=== PATIENT | female | born 1980 | race African-American/Black ===

== ENCOUNTER 2019-11-04 07:55 | Observation (INO) | payer BC ==
[2019-11-04 08:18] LABS: Glucose,Whole Blood 200 mg/dL (75-99)
[2019-11-04 08:31] LABS: Basophils % (A) 0 %; Eosinophils # (A) 0.4 k/uL (0-0.7); Eosinophils % (A) 3 %; HCT 38.8 % (34.0-46.0); HGB 13.5 gm/dL (11.4-16.0); Lymphocytes # (A) 2.6 k/uL (1.0-4.8); Lymphocytes % (A) 21 %; MCH 32.8 pg (25.0-35.0); MCHC 34.7 g/dL (31.0-37.0); MCV 94.6 fL (80.0-100.0); Mean Platelet Volume 8.3; Monocytes # (A) 0.6 k/uL (0-1.0); Monocytes % (A) 5 %; Neutrophils # (A) 8.8 k/uL (1.3-7.7); Neutrophils % (A) 70 %; Platelet Count 378 k/uL (150-450); RDW 15.5 % (11.5-15.5); WBC 12.5 k/uL (3.8-10.6)
--- NOTE | 2019-11-04 08:31 | ED ---
General Adult HPI - General Chief complaint: Neuro Symptoms/Deficit Stated complaint: Facial droop Time Seen by Provider: 11/04/19 08:15 Source: patient, family, RN notes reviewed Mode of arrival: ambulatory Limitations: no limitations - History of Present Illness Initial comments: Patient is a pleasant 39-year-old female presenting to the emergency Department with complaints of left facial weakness. Last known well was around midnight when she went to bed. Patient woke this morning and went to the bathroom and noticed left side of her face was weak. Patient states there is also mild paresthesia of the left face and left arm. Patient states symptoms have near resolved now that she is here in the emergency department. Patient may have some minimal tingling of her left arm still. Patient denies any arm or leg weakness. No confusion. No headache. No speech problems. No balance problems. No history of similar symptoms previously. Patient does not recall any problems with opening or shutting her eyelid. - Related Data Home Medications Medication Instructions Recorded Confirmed Mv-Mn/C/Glutamin/Lysin/Ctnk366 1 tab PO DAILY 11/04/19 11/04/19 [Airborne Gummies] Allergies Allergy/AdvReac Type Severity Reaction Status Date / Time No Known Allergies Allergy Verified 07/04/15 23:14 Review of Systems ROS Statement: Those systems with pertinent positive or pertinent negative responses have been documented in the HPI. ROS Other: All systems not noted in ROS Statement are negative. Constitutional: Denies: fever Eyes: Denies: eye pain ENT: Denies: ear pain Respiratory: Denies: cough Cardiovascular: Denies: chest pain Endocrine: Denies: fatigue Gastrointestinal: Denies: abdominal pain Genitourinary: Denies: dysuria Musculoskeletal: Denies: back pain Skin: Denies: rash Neurological: Reports: as per HPI, weakness, paresthesias. Denies: headache Past Medical History Past Medical History: Hypertension History of Any Multi-Drug Resistant Organisms: None Reported Past Surgical History: Section, Hysterectomy Past Psychological History: No Psychological Hx Reported Smoking Status: Current every day smoker Past Alcohol Use History: None Reported Past Drug Use History: Marijuana General Exam Limitations: no limitations General appearance: alert, in no apparent distress Head exam: Present: normocephalic Eye exam: Present: normal appearance, PERRL, EOMI. Absent: nystagmus ENT exam: Present: normal oropharynx Neck exam: Present: normal inspection Respiratory exam: Present: normal lung sounds bilaterally Cardiovascular Exam: Present: regular rate, normal rhythm GI/Abdominal exam: Present: soft. Absent: tenderness Extremities exam: Present: normal inspection Neurological exam: Present: alert, oriented X3, CN II-XII intact. Absent: motor sensory deficit Expanded Neurological exam: Present: protecting the airway Patient oriented to: Present: person, place, time Speech: Present: fluid speech Cranial nerves: EOM's Intact: Normal, Facial Palsy with Forehead Movement: Normal Sensory exam: Upper Extremity Light Touch: Normal, Lower Extremity Light Touch: Normal Motor strength exam: RUE: 5, LUE: 5, RLE: 5, LLE: 5 Eye Response: (4) open spontaneously Motor Response: (6) obeys commands Verbal Response: (5) oriented Psychiatric exam: Present: normal affect, normal mood Skin exam: Present: normal color Course Vital Signs 11/04/19 11/04/19 11/04/19 08:00 08:20 08:35 Temperature 98.4 F Pulse Rate 101 H 89 87 Respiratory 19 18 18 Rate Blood Pressure 194/130 192/131 196/112 O2 Sat by Pulse 100 98 95 Oximetry - Reevaluation(s) Reevaluation #1: 11/04/19 08:59 Case was again discussed with Dr. mendez who does want patient to have aspirin and Lipitor and Plavix. He does want patient admitted with neurology consult and MRI. He will follow up with patient. 11/04/19 09:01 Dr. mendez did review CT and CTA. - Consultations Consultation #1: Case was discussed in detail with Dr. Silva who recommends admission with aspirin and Lipitor. He agrees patient is not a TPA candidate. Patient is not a TPA candidate secondary to resolution of symptoms as well as last known well was a half hours ago. EKG Findings - EKG Comments: EKG Findings:: Normal sinus rhythm and 90. TX 190. QRS 100. QT 400. QTc 506. Left axis. LVH. Inverted T-wave in V6. Medical Decision Making - Lab Data Result diagrams: 11/04/19 08:15 11/04/19 08:15 Lab Results 11/04/19 11/04/19 11/04/19 Range/Units 08:15 08:15 08:15 WBC 12.5 H (3.8-10.6) k/uL RBC 4.10 (3.80-5.40) m/uL Hgb 13.5 (11.4-16.0) gm/dL Hct 38.8 (34.0-46.0) % MCV 94.6 (80.0-100.0) fL MCH 32.8 (25.0-35.0) pg MCHC 34.7 (31.0-37.0) g/dL RDW 15.5 (11.5-15.5) % Plt Count 378 (150-450) k/uL Neutrophils % 70 % Lymphocytes % 21 % Monocytes % 5 % Eosinophils % 3 % Basophils % 0 % Neutrophils # 8.8 H (1.3-7.7) k/uL Lymphocytes # 2.6 (1.0-4.8) k/uL Monocytes # 0.6 (0-1.0) k/uL Eosinophils # 0.4 (0-0.7) k/uL Basophils # 0.0 (0-0.2) k/uL PT 10.3 (9.0-12.0) sec INR 1.0 (<1.2) APTT 25.9 (22.0-30.0) sec Sodium 143 (137-145) mmol/L Potassium 2.6 L* (3.5-5.1) mmol/L Chloride 104 (98-107) mmol/L Carbon Dioxide 24 (22-30) mmol/L Anion Gap 15 mmol/L BUN 8 (7-17) mg/dL Creatinine 1.01 (0.52-1.04) mg/dL Est GFR (CKD-EPI)AfAm 81 (>60 ml/min/1.73 sqM) Est GFR (CKD-EPI)NonAf 70 (>60 ml/min/1.73 sqM) Glucose 192 H (74-99) mg/dL POC Glucose (mg/dL) (75-99) mg/dL POC Glu Paper Folding Machine Operator ID Calcium 8.0 L (8.4-10.2) mg/dL Total Bilirubin 0.8 (0.2-1.3) mg/dL AST 43 H (14-36) U/L ALT 20 (4-34) U/L Alkaline Phosphatase 63 (38-126) U/L Total Creatine Kinase (30-135) U/L Total Protein 8.0 (6.3-8.2) g/dL Albumin 4.8 (3.5-5.0) g/dL 11/04/19 11/04/19 Range/Units 08:15 08:17 WBC (3.8-10.6) k/uL RBC (3.80-5.40) m/uL Hgb (11.4-16.0) gm/dL Hct (34.0-46.0) % MCV (80.0-100.0) fL MCH (25.0-35.0) pg MCHC (31.0-37.0) g/dL RDW (11.5-15.5) % Plt Count (150-450) k/uL Neutrophils % % Lymphocytes % % Monocytes % % Eosinophils % % Basophils % % Neutrophils # (1.3-7.7) k/uL Lymphocytes # (1.0-4.8) k/uL Monocytes # (0-1.0) k/uL Eosinophils # (0-0.7) k/uL Basophils # (0-0.2) k/uL PT (9.0-12.0) sec INR (<1.2) APTT (22.0-30.0) sec Sodium (137-145) mmol/L Potassium (3.5-5.1) mmol/L Chloride (98-107) mmol/L Carbon Dioxide (22-30) mmol/L Anion Gap mmol/L BUN (7-17) mg/dL Creatinine (0.52-1.04) mg/dL Est GFR (CKD-EPI)AfAm (>60 ml/min/1.73 sqM) Est GFR (CKD-EPI)NonAf (>60 ml/min/1.73 sqM) Glucose (74-99) mg/dL POC Glucose (mg/dL) 200 H (75-99) mg/dL POC Glu Paper Folding Machine Operator ID Erna Gutierres Calcium (8.4-10.2) mg/dL Total Bilirubin (0.2-1.3) mg/dL AST (14-36) U/L ALT (4-34) U/L Alkaline Phosphatase (38-126) U/L Total Creatine Kinase 211 H (30-135) U/L Total Protein (6.3-8.2) g/dL Albumin (3.5-5.0) g/dL Disposition Clinical Impression: Transient cerebral ischemia, Hypertension, Hypokalemia Disposition: ADMITTED IP TO THIS HOSP Condition: Serious Is patient prescribed a controlled substance at d/c from ED?: No Referrals: None,Stated [Primary Care Provider] - 1-2 days Decision Time: 09:00
[2019-11-04 08:41] LABS: Partial Thromboplastin Time 25.9 sec (22.0-30.0); Prothrombin Time 10.3 sec (9.0-12.0)
[2019-11-04 08:42] LABS: Albumin 4.8 g/dL (3.5-5.0); Total Bilirubin 0.8 mg/dL (0.2-1.3)
--- NOTE | 2019-11-04 08:42 | CT ---
EXAMINATION TYPE: CT brain wo con for TPA DATE OF EXAM: 11/04/2019 COMPARISON: None HISTORY: 39-year-old female Left side weakness TECHNIQUE: Examination was done in axial plane without intravenous contrast. Coronal and sagittal r econstructions performed. CT DLP: 1043.8 mGycm Automated exposure control for dose reduction was used. FINDINGS: There is no evidence of acute intracranial hemorrhage, acute ischemic changes, mass, mass-effect, or extra-axial fluid collection. There is no effacement of cerebral sulci or basal subarachnoid cister ns. There is no hydrocephalus. There is no midline shift. Barbosa-white matter distinction is preserv ed. Incidental partially empty sella. Trace mucosal thickening ethmoid air cells. Mastoid air cells well pneumatized. The globes are intact . IMPRESSION: No acute intracranial abnormality seen.
[2019-11-04 08:45] LABS: Potassium 2.6 mmol/L (3.5-5.1)
[2019-11-04] MEDS ORDERED: POTASSIUM CHLORIDE ER 20 MEQ TAB.ER PO STA (08:57)
[2019-11-04] MEDS ORDERED: POTASSIUM CHLORIDE 2 MEQ/ML 20 ML VIAL IVPB STA (08:59)
[2019-11-04] MEDS ORDERED: ASPIRIN 325 MG TAB PO STA (09:02)
[2019-11-04] MEDS ORDERED: POTASSIUM CHLORIDE 20 MEQ in WATER FOR INJECTION 1 100ML.BAG IVPB STA (09:03)
[2019-11-04 09:05] LABS: Troponin I 0.02 ng/mL (0.000-0.034)
--- NOTE | 2019-11-04 09:18 | CT ---
EXAMINATION TYPE: CT angio head neck DATE OF EXAM: 11/04/2019 COMPARISON: CT brain same day HISTORY: 39-year-old female Left side weakness TECHNIQUE: Contiguous axial scanning of the head and neck performed with IV Contrast, patient injecte d with 65 mL of Isovue 370. Coronal/sagittal MIP reconstructions performed. 3-D reconstructions gener ated on a dedicated independent workstation. CT DLP: 506.8 mGycm Automated exposure control for dose reduction was used. FINDINGS: NECK: Conventional branching anatomy. The bilateral common and internal carotid arteries are patent. The bilateral vertebral arteries are patent though the right vertebral artery is dominant. Head: The vertebral, basilar, and internal carotid arteries are patent. Right vertebral artery again noted to be dominant. 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 Otherwise, the anterior and posterior circulations are patent. No aneurysmal change is seen. IMPRESSION: NECK: 1. DOMINANT RIGHT VERTEBRAL ARTERY. OTHERWISE, WIDELY PATENT CAROTID AND VERTEBRAL ARTERIES OF THE NE CK. HEAD: 1. CONGENITAL VARIATION WITH PERSISTENT ORIGIN RIGHT EMPLOYMENT CLERK. 2. OTHERWISE, NO LARGE VESSEL INTRACRANIAL ARTERIAL OCCLUSION, SIGNIFICANT STENOSIS, OR ANEURYSMAL CH CYDNEY SEEN.
[2019-11-04] MEDS: SODIUM CHLORIDE 0.9% 1,000 ML IV SCH (09:23)
[2019-11-04] MEDS ORDERED: ATORVASTATIN 80 MG TAB PO SCH (09:30)
[2019-11-04] MEDS ORDERED: CLOPIDOGREL 75 MG TAB PO SCH (09:30)
--- NOTE | 2019-11-04 10:00 | XR ---
EXAMINATION TYPE: XR chest 2V DATE OF EXAM: 11/04/2019 COMPARISON: NONE TECHNIQUE: PA and lateral views submitted. HISTORY: altered mental status FINDINGS: The lungs are clear and there is no pneumothorax, pleural effusion, or focal pneumonia. Mild cardio megaly. Biapical pleural thickening. Subsegmental changes left lung base. IMPRESSION: 1. Mild cardiomegaly and left basilar atelectasis favored over pneumonia correlate clinically..
--- NOTE | 2019-11-04 11:27 | P.HPIM ---
History of Present Illness 39-year-old pleasant female came in was department complains of weakness in the left side of the face with drooping towards the right side. Patient still has the weakness started today morning. Patient denied any nausea vomiting ab dominal pain patient had abdominal discomfort yesterday which she doesn't have today. Patient was having tingling numbness in the left side of the body patient did not have any appreciable weakness in the left side of the body. Patient does have history of essential hypertension doesn't take any medications at home. Does smoke does drink alcohol on daily basis but that she says it's only take 3-4 shots a day. Review of Systems REVIEW OF SYSTEMS: CONSTITUTIONAL: No fever, no malaise, no fatigue. HEENT: No recent visual problems or hearing problems. Denied any sore throat. CARDIOVASCULAR: No chest pain, orthopnea, PND, no palpitations, no syncope. PULMONARY: No shortness of breath, no cough, no hemoptysis. GASTROINTESTINAL: No diarrhea, no nausea, no vomiting, no abdominal pain. NEUROLOGICAL: As mentioned in HPI HEMATOLOGICAL: Denies any bleeding or petechiae. GENITOURINARY: Denies any burning micturition, frequency, or urgency. MUSCULOSKELETAL/RHEUMATOLOGICAL: Denies any joint pain, swelling, or any muscle pain. ENDOCRINE: Denies any polyuria or polydipsia. The rest of the 14-point review of systems is negative. Past Medical History Past Medical History: GERD/Reflux, GI Bleed, Hypertension Additional Past Medical History / Comment(s): Anal fissure, hemorrhoids, lower GI bleed History of Any Multi-Drug Resistant Organisms: None Reported Past Surgical History: Section, Hysterectomy, Tubal Ligation Additional Past Surgical History / Comment(s): colonoscopy Past Anesthesia/Blood Transfusion Reactions: No Reported Reaction, Motion Sickness Smoking Status: Current every day smoker - Past Family History Father History Unknown: Yes Additional Family Medical History / Comment(s): Pt does not know her father's medical hx. Mother Family Medical History: Diabetes Mellitus, Renal Disease Additional Family Medical History / Comment(s): Mother from renal failure Medications and Allergies Home Medications Medication Instructions Recorded Confirmed Type Mv-Mn/C/Glutamin/Lysin/[id number] 1 tab PO DAILY 11/04/19 11/04/19 History [Airborne Gummies] Allergies Allergy/AdvReac Type Severity Reaction Status Date / Time No Known Allergies Allergy Verified 11/04/19 10:35 Physical Exam Vitals: Vital Signs Temp Pulse Resp BP Pulse Ox 11/04/19 09:20 87 16 184/116 99 11/04/19 09:05 84 16 186/117 99 11/04/19 08:50 81 16 184/112 98 11/04/19 08:35 87 18 196/112 95 11/04/19 08:20 89 18 192/131 98 11/04/19 08:00 98.4 F 101 H 19 194/130 100 Intake and Output 11/03/19 11/04/19 11/04/19 22:59 06:59 14:59 Other: Weight 78.018 kg PHYSICAL EXAMINATION: GENERAL: The patient is alert and oriented x3, not in any acute distress. Well developed, well nourished. HEENT: Pupils are round and equally reacting to light. EOMI. No scleral icterus. No conjunctival pallor. Normocephalic, atraumatic. No pharyngeal erythema. No thyromegaly. CARDIOVASCULAR: S1 and S2 present. No murmurs, rubs, or gallops. PULMONARY: Chest is clear to auscultation, no wheezing or crackles. ABDOMEN: Soft, nontender, nondistended, normoactive bowel sounds. No palpable organomegaly. MUSCULOSKELETAL: No joint swelling or deformity. EXTREMITIES: No cyanosis, clubbing, or pedal edema. NEUROLOGICAL: Is still some facial weakness on the left side of the face now that weakness was appreciated sensory exam was not done by me as neurology is evaluating the patient. SKIN: No rashes. Results CBC & Chem 7: 11/04/19 08:15 11/04/19 08:15 Labs: Abnormal Lab Results - Last 24 Hours (Table) 11/04/19 11/04/19 11/04/19 Range/Units 08:15 08:15 08:15 WBC 12.5 H (3.8-10.6) k/uL Neutrophils # 8.8 H (1.3-7.7) k/uL Potassium 2.6 L* (3.5-5.1) mmol/L Glucose 192 H (74-99) mg/dL POC Glucose (mg/dL) (75-99) mg/dL Calcium 8.0 L (8.4-10.2) mg/dL AST 43 H (14-36) U/L Total Creatine Kinase 211 H (30-135) U/L 11/04/19 Range/Units 08:17 WBC (3.8-10.6) k/uL Neutrophils # (1.3-7.7) k/uL Potassium (3.5-5.1) mmol/L Glucose (74-99) mg/dL POC Glucose (mg/dL) 200 H (75-99) mg/dL Calcium (8.4-10.2) mg/dL AST (14-36) U/L Total Creatine Kinase (30-135) U/L Thrombosis Risk Factor Assmnt - Choose All That Apply Any of the Below Risk Factors Present?: Yes Each Factor Represents 1 point: Obesity (BMI >25) Other Risk Factors: No Other congenital or acquired thrombophilia - If yes, enter type in comment: No Thrombosis Risk Factor Assessment Total Risk Factor Score: 1 Thrombosis Risk Factor Assessment Level: Low Risk Assessment and Plan Plan: -Possible TIA or cerebrovascular accident on the right side most probably in right internal capsular the subcortical area. MRI was ordered will obtain lipid panel CT angios the head and neck did not show any significant occlusion echocardiogram will be obtained. Patient blood pressure is elevated but considering her TIA patient will not be started on antidepressant medications today. The patient is being discharged today patient will be referred to PCP to address the hypertension. Extensive nicotine cessation and alcohol cessation counseling was provided 10-essential hypertension: Marijuana and as mentioned above 10-nicotine abuse and alcohol abuse: Counseling was provided my suspicion is low that patient will have withdrawals but patient will be monitored here for any withdrawals -Hyperlipidemia probably because of hyponatremic azotemia from alcoholism magnesium will be on be obtained and potassium will be supplemented. -DVT prophylaxis early ambulation
[2019-11-04 11:30] LABS: Magnesium 1.2 mg/dL (1.6-2.3)
[2019-11-04] MEDS ORDERED: POTASSIUM CHLORIDE ER 20 MEQ TAB.ER PO ONE (11:30)
--- NOTE | 2019-11-04 11:48 | P.CNNES ---
History of Present Illness Consult date: 11/04/19 Requesting physician: Carlos Monge Reason for Consult: Stroke/TIA History of Present Illness: Patient is a 39-year-old female with history of hypertension, noncompliant with medication, as she has not taken the pressure medication for over a year. Patient states that she went to bed at midnight last night in usual state of health. This morning she woke up at 6:30 AM, and was fine. She went to the bathroom and felt her left side of the face was tight and she notices left side of the face was droopy. She noticed some tingling of left side of the body. There was no focal weakness, or problem with the vision, slurred speech or imbalance. Patient got concerned and decided to come to the ER. Her blood pressure initially recorded was 194/130. Patient underwent computed tomography scan of head, which was normal. 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 Otherwise no large vessel intracranial arterial occlusion, significant stenosis or aneurysm. CTA of the neck showed dominant right vertebral artery, otherwise widely patent carotid and vertebral arteries of the neck. Patient had EKG showed normal sinus rhythm. Chest x-ray showed mild cardiomegaly, left basilar atelectasis favored over pneumonia. Patient states that the tingling of left side of the body has completely resolved. She still feels slight tightness of the left side of the face but much improved. No other neurological symptoms. Patient was evaluated in the ER and the ED staff spoke to stroke neurologist Dr. Silva, who felt patient was not a candidate for TPA as patient's symptoms had mostly resolved in the ER. Patient has history of hypertension for 10 years, completely noncompliant with medication. Patient has not taken blood pressure medication for over a year. She does not take any antiplatelet medication. She takes only vitamins. Patient has smoked half pack per day for 20 years. Denies diabetes. Review of Systems As above in detail. Past Medical History Past Medical History: GERD/Reflux, GI Bleed, Hypertension Additional Past Medical History / Comment(s): Anal fissure, hemorrhoids, lower GI bleed History of Any Multi-Drug Resistant Organisms: None Reported Past Surgical History: Section, Hysterectomy, Tubal Ligation Additional Past Surgical History / Comment(s): colonoscopy Past Anesthesia/Blood Transfusion Reactions: No Reported Reaction, Motion Sickness Smoking Status: Current every day smoker - Past Family History Father History Unknown: Yes Additional Family Medical History / Comment(s): Pt does not know her father's medical hx. Mother Family Medical History: Diabetes Mellitus, Renal Disease Additional Family Medical History / Comment(s): Mother from renal failure Medications and Allergies Home Medications Medication Instructions Recorded Confirmed Type Mv-Mn/C/Glutamin/Lysin/[id number] 1 tab PO DAILY 11/04/19 11/04/19 History [Airborne Gummies] Allergies Allergy/AdvReac Type Severity Reaction Status Date / Time No Known Allergies Allergy Verified 11/04/19 10:35 Physical Examination - Vital Signs Vital Signs: Vital Signs Temp Pulse Resp BP Pulse Ox 11/04/19 09:20 87 16 184/116 99 11/04/19 09:05 84 16 186/117 99 11/04/19 08:50 81 16 184/112 98 11/04/19 08:35 87 18 196/112 95 11/04/19 08:20 89 18 192/131 98 11/04/19 08:00 98.4 F 101 H 19 194/130 100 Intake and Output 11/03/19 11/04/19 11/04/19 22:59 06:59 14:59 Other: Weight 78.018 kg On examination patient is a middle aged Afro-Portuguese female, in no acute distress. Patient is very pleasant. Patient is fully alert awake oriented to time place and person. Speech and language functions are normal. Attention and concentration fund of knowledge is adequate. On cranial nerve examination, pupils are round and reactive to light, visual arauz are full, extraocular muscles are intact. Face is symmetric and tongue protrudes the midline. Palatal elevation and sensation normal. On muscle strength testing there is no pronator drift and the strength is normal in arms and legs distally and proximally. Reflexes are symmetric and plantars downgoing. No ataxia for [id number] tone and bulk of muscles normal. There is no carotid bruit S1 and S2 audible. Results - Laboratory Findings CBC and BMP: 11/04/19 08:15 11/04/19 08:15 Abnormal Lab Findings: Abnormal Labs 11/04/19 11/04/19 11/04/19 08:15 08:15 08:15 WBC 12.5 H Neutrophils # 8.8 H Potassium 2.6 L* Glucose 192 H POC Glucose (mg/dL) Calcium 8.0 L AST 43 H Total Creatine Kinase 211 H 11/04/19 08:17 WBC Neutrophils # Potassium Glucose POC Glucose (mg/dL) 200 H Calcium AST Total Creatine Kinase Assessment and Plan Assessment: * Possible TIA versus transient focal neurological deficits due to uncontrolled hypertension. * Hypertension, uncontrolled * Tobacco user * Medication noncompliant Plan: * Patient to be started on aspirin 325 mg daily. * Patient's blood glucose is running in around 200 range. We will check hemog lobin A1c. * Blood patient used to be controlled. * MRI was recommended, but patient declined. Her NIH stroke scale is 0. Patient probably had TIA. * Agree with starting statins. * 2-D echo with bubble study to rule out PFO. * Recommended tobacco cessation.
[2019-11-04] MEDS: ATORVASTATIN 20 MG TAB PO SCH (13:09)
[2019-11-04] MEDS ORDERED: MELATONIN 5 MG TABLET PO SCH (21:00)
[2019-11-04] MEDS: POTASSIUM CHLORIDE ER 20 MEQ TAB.ER PO SCH (21:41)
[2019-11-04] MEDS: LABETALOL 100 MG TAB PO PRN (21:46)
[2019-11-04 21:55] LABS: Hemoglobin A1C 6.8 % (4.0-6.0)
[2019-11-05] MEDS: LABETALOL 100 MG TAB PO PRN (04:23)
[2019-11-05 06:24] LABS: African American GFR (CKD) >90 (>60 ml/min/1.73 sqM); Anion Gap 10 mmol/L; Blood Urea Nitrogen 5 mg/dL (7-17); Calcium 7.1 mg/dL (8.4-10.2); Carbon Dioxide 26 mmol/L (22-30); Chloride 104 mmol/L (98-107); Cholesterol 163 mg/dL (<200); Glucose 164 mg/dL (74-99); HDL Cholesterol 43 mg/dL (40-60); LDL Cholesterol,Calculated 76 mg/dL (0-99); Non-African American GFR(CKD) 90 (>60 ml/min/1.73 sqM); Potassium 2.9 mmol/L (3.5-5.1); Sodium 140 mmol/L (137-145); Triglycerides 222 mg/dL (<150)
[2019-11-05] MEDS: SODIUM CHLORIDE 0.9% 1,000 ML IV SCH ×2 (08:08→08:13)
[2019-11-05] MEDS: POTASSIUM CHLORIDE ER 20 MEQ TAB.ER PO SCH ×2 (08:18→09:13)
[2019-11-05] MEDS: ATORVASTATIN 20 MG TAB PO SCH (08:18)
[2019-11-05 08:50] VITALS: BP 190/106; PULSE 85; RESP 20; TEMP 98.3
[2019-11-05] MEDS ORDERED: ASPIRIN 325 MG TAB PO SCH (09:00)
[2019-11-05] MEDS ORDERED: MAGNESIUM SULFATE-D5W PMX 1 GM in DEXTROSE/WATER 1 100ML.BAG IVPB SCH (10:00)
[2019-11-05] MEDS ORDERED: POTASSIUM CHLORIDE 20 MEQ in WATER FOR INJECTION 1 100ML.BAG IVPB ONE (10:00)
--- NOTE | 2019-11-05 11:13 | P.PN ---
Subjective 39-year-old female admitted for TIA patient declined MRI. Patient is not happy with care as the all the things are not addressed yesterday all the things cannot be addressed as today. Patient wanted to leave. Patient is severely hypomagnesemic because of alcoholism. I counseled her that I'll replace magnesium and alert and discharge the patient after magnesium and potassium replacement on a diuretic therapy with a potassium pill and patient is a prediabetic patient will benefit from metformin same thing was discussed with the patient although patient doesn't seem to like any medications. Patient said she came in with 1 condition now she has 4 or 5 different conditions she believes these medical problems were created by hospital and hospital staff in spite of extensive counseling patient doesn't want any of these wanted to get a second opinion wanted to leave. I said I cannot officially discharge her until she gets this electrolytes replaced but patient is not willing to stay and I didn't even get a chance to review her aspirin and a statin even before I can do that patient left AMA. Objective - Vital Signs Vital signs: Vital Signs Temp 98.3 F 11/05/19 08:00 Pulse 85 11/05/19 08:00 Resp 20 11/05/19 08:00 BP 190/106 11/05/19 08:00 Pulse Ox 98 11/05/19 08:00 Intake & Output 11/04/19 11/05/19 11/05/19 18:59 06:59 18:59 Intake Total 360 180 Output Total 1 Balance 359 180 Weight 78.018 kg 71.9 kg Intake: Oral 360 180 Output: Urine 1 Other: Voiding Method Toilet # Voids 1 - Exam Did not examine as patient is not happy with hospital stay - Labs CBC & Chem 7: 11/04/19 08:15 11/05/19 05:47 Labs: Abnormal Lab Results - Last 24 Hours (Table) 11/04/19 11/04/19 11/05/19 Range/Units 08:15 08:15 05:47 Potassium 2.9 L (3.5-5.1) mmol/L BUN 5 L (7-17) mg/dL Glucose 164 H (74-99) mg/dL Hemoglobin A1c 6.8 H (4.0-6.0) % Calcium 7.1 L (8.4-10.2) mg/dL Magnesium 1.2 L (1.6-2.3) mg/dL Triglycerides 332 H 222 H (<150) mg/dL Assessment and Plan Plan: -Possible TIA or cerebrovascular accident on the right side most probably in right internal capsular the subcortical area. She declined MRI, she does have hyperlipidemia CT angios the head and neck did not show any significant occlusion echocardiogram was within normal limits -Hypomagnesemia -Hypokalemia -essential hypertension: Action plan is to send her and diuretic but patient ended up leaving AGAINST MEDICAL ADVICE 10-nicotine abuse and alcohol abuse: Doesn't have any alcohol withdrawals -Hyperlipidemia -Pre-diabetes
--- NOTE | 2019-11-05 11:14 | P.DS ---
Providers Date of admission: 11/04/19 09:02 Attending physician: Carlos Monge MD Consults: 11/04/19 09:02 Consult Physician Urgent Consulting Provider: Keesha Hernandez Consult Reason/Comments: tia Do you want consulting provider notified?: Yes Primary care physician: Stated None Hospital Course: Patient left AGAINST MEDICAL ADVICE Patient Condition at Discharge: Serious Plan - Discharge Summary Discharge Rx Participant: No New Discharge Prescriptions: No Action Mv-Mn/C/Glutamin/Lysin/[id number] [Airborne Gummies] 1 tab PO DAILY Discharge Medication List Mv-Mn/C/Glutamin/Lysin/[id number] [Airborne Gummies] 1 tab PO DAILY 11/04/19 [History] Follow up Appointment(s)/Referral(s): None,Stated [Primary Care Provider] - 1-2 days (Please contact your insurance company about finding a primary physician in your coverage plan.) Patient Instructions/Handouts: Transient Ischemic Attack (DC), How to Stop Smoking (DC), At-Risk Alcohol Use (DC), Hypertension (DC) Activity/Diet/Wound Care/Special Instructions: CVA/TIA 1. Call your physician with any worsening symptoms of stroke such as, increased weakness, new numbness or tingling, mental status changes, visual changes or new loss of sensation. 2. Stroke prevention methods include lowering cholesterol, thinning your blood, preventing high blood pressure, keeping tight control of your diabetes, increasing exercise/activity, smoking cessation and alcohol cessation. Discharge Disposition: Left Against Medical Advice
[2019-11-05] MEDS ORDERED: POTASSIUM CHLORIDE ER 20 MEQ TAB.ER PO ONE (12:00)
--- NOTE | 2019-11-05 19:08 | ECHOF ---
Referral Reason:Thrombus MEASUREMENTS -------- HEIGHT: 162.6 cm WEIGHT: 78.0 kg BP: 184/116 IVSd: 1.3 cm (0.6 - 1.1) LVIDd: 4.9 cm (3.9 - 5.3) LVPWd: 1.7 cm (0.6 - 1.1) IVSs: 1.3 cm LVIDs: 4.1 cm LVPWs: 1.8 cm LA Diam: 4.5 cm (2.7 - 3.8) LAESV Index (A-L): 49.09 ml/m Ao Diam: 2.4 cm (2.0 - 3.7) AV Cusp: 1.4 cm (1.5 - 2.6) LA Diam: 3.9 cm (2.7 - 3.8) MV EXCURSION: 19.740 mm (> 18.000) MV EF SLOPE: 75 mm/s (70 - 150) EPSS: 1.4 cm MV E Trino: 1.01 m/s MV DecT: 72 ms MV A Trino: 0.73 m/s MV E/A Ratio: 1.38 RAP: 5.00 mmHg RVSP: 15.84 mmHg FINDINGS -------- Sinus rhythm. This was a technically good study. The left ventricular size is normal. There is severe concentric left ventricular hypertrophy. The re is mild global hypokinesis of LV . Overall left ventricular systolic function is mildly impaired with, an EF between 45 - 50 %. The right ventricle is normal in size. LA is severely dilated >40 ml/m2 The right atrial size is normal. There is mild aortic valve sclerosis. There is mild aortic regurgitation. The mitral valve is normal. Mild mitral regurgitation is present. Mild tricuspid regurgitation present. Right ventricular systolic pressure is normal at < 35 mmHg. There is no evidence of pulmonary hypertension. There is no pulmonic regurgitation present. The aortic root size is normal. There is no pericardial effusion. CONCLUSIONS -------- 1. Sinus rhythm. 2. This was a technically good study. 3. The left ventricular size is normal. 4. There is severe concentric left ventricular hypertrophy. 5. There is mild global hypokinesis of LV . 6. Overall left ventricular systolic function is mildly impaired with, an EF between 45 - 50 %. 7. LA is severely dilated >40 ml/m2 8. There is mild aortic valve sclerosis. 9. There is mild aortic regurgitation. 10. Mild mitral regurgitation is present. 11. Mild tricuspid regurgitation present. 12. Right ventricular systolic pressure is normal at < 35 mmHg. 13. There is no pulmonic regurgitation present. 14. The aortic root size is normal. 15. There is no pericardial effusion. TOLL COLLECTOR: Sis Stiles RDCS
== END 2019-11-05 09:30 | disposition left against medical advice (07) ==
LOC: EC 07:55 → 3SCARD 09:02
PROVIDERS: ADMIT Internal Medicine; ATTEND Internal Medicine
DX: G45.9 Transient cerebral ischemic attack, unspecified (principal); E78.5 Hyperlipidemia, unspecified; E83.42 Hypomagnesemia; E87.1 Hypo-osmolality and hyponatremia; E87.6 Hypokalemia; F10.20 Alcohol dependence, uncomplicated; F17.200 Nicotine dependence, unspecified, uncomplicated; I10 Essential (primary) hypertension; J98.11 Atelectasis; R29.810 Facial weakness; R73.03 Prediabetes; Z83.3 Family history of diabetes mellitus; Z90.710 Acquired absence of both cervix and uterus; Z91.14 Patient's other noncompliance with medication regimen; Z98.51 Tubal ligation status
CPT/HCPCS: 96366; 96365; 99285; 36415; 93005; 93306; 97161; 80061 ×2; 80053; 80048; 82550; 82553; 83735; 84484; 85025; 85610; 85730; 83036; 71046; 70496; 70450; 70498; G0378 ×2; J3480; Q9967

== ENCOUNTER 2021-06-11 15:48 | Emergency (ER) | payer BC, OTHER ==
[2021-06-11 16:08] VITALS: RESP 18; TEMP 98.2
[2021-06-11] MEDS ORDERED: oxyCODONE-APAP 10-325MG 1 EACH TAB PO STA (16:27)
--- NOTE | 2021-06-11 16:28 | ED ---
General Adult HPI - General Chief complaint: Extremity Injury, Lower Stated complaint: IHS-foot injury Time Seen by Provider: 06/11/21 16:13 Source: patient Mode of arrival: ambulatory Limitations: no limitations - History of Present Illness Initial comments: Dictation was produced using [employer] dictation software. please excuse any grammatical, word or spelling errors. Chief Complaint: 41-year-old female presents with right foot pain History of Present Illness: 41-year-old female she presents with right foot pain. She accidentally kicked a metal cart at work yesterday. She has midfoot tenderness. Patient states she had injured that foot in the past. She started with family with a limp. The ROS documented in this emergency department record has been reviewed and confirmed by me. Those systems with pertinent positive or negative responses have been documented in the HPI. All other systems are other negative and/or no ncontributory. PHYSICAL EXAM: General Impression: Alert and oriented x3, not in acute distress Right ankle: Tenderness to the midfoot with palpation, no discoloration, normal dorsalis pedis pulse and PT pulse Psych: Normal affect and mood ED course: 41 Year old female presents with right foot pain after axilla kicking cart yesterday. Vital Signs upon arrival are within acceptable limits. Foot x-ray is unremarkable. Despite having some mid foot pain mechanism injury makes Lisfranc injury unlikely, furthermore symptoms are only the dorsum of her foot. Patient given by mouth analgesia. Patient given prescription for analgesia. Patient will be discharged. - Related Data Home Medications Medication Instructions Recorded Confirmed Mv-Mn/C/Glutamin/Lysin/[id number] 1 tab PO DAILY 11/04/19 11/04/19 [Airborne Gummies] Previous Rx's Medication Instructions Recorded HYDROcodone/APAP 5-325MG [Eva 1 tab PO Q6HR PRN 3 Days #12 tab 06/11/21 5-325] Allergies Allergy/AdvReac Type Severity Reaction Status Date / Time No Known Allergies Allergy Verified 06/11/21 16:06 Review of Systems ROS Statement: Those systems with pertinent positive or pertinent negative responses have been documented in the HPI. ROS Other: All systems not noted in ROS Statement are negative. Past Medical History Past Medical History: GERD/Reflux, GI Bleed, Hypertension Additional Past Medical History / Comment(s): Anal fissure, hemorrhoids, lower GI bleed History of Any Multi-Drug Resistant Organisms: None Reported Past Surgical History: Section, Hysterectomy, Tubal Ligation Additional Past Surgical History / Comment(s): colonoscopy Past Anesthesia/Blood Transfusion Reactions: No Reported Reaction, Motion Sickness Past Psychological History: Anxiety, Depression Smoking Status: Current every day smoker Past Alcohol Use History: None Reported, Heavy Past Drug Use History: Marijuana - Past Family History Father History Unknown: Yes Additional Family Medical History / Comment(s): Pt does not know her father's medical hx. Mother Family Medical History: Diabetes Mellitus, Renal Disease Additional Family Medical History / Comment(s): Mother from renal failure General Exam Limitations: no limitations Course Vital Signs 06/11/21 16:06 Temperature 98.2 F Pulse Rate 94 Respiratory 18 Rate Blood Pressure 186/102 O2 Sat by Pulse 100 Oximetry Disposition Clinical Impression: Foot pain Disposition: HOME SELF-CARE Condition: Good Instructions (If sedation given, give patient instructions): Foot Contusion (ED) Prescriptions: HYDROcodone/APAP 5-325MG [Eva 5-325] 1 tab PO Q6HR PRN 3 Days #12 tab PRN Reason: Severe Pain Is patient prescribed a controlled substance at d/c from ED?: Yes If prescribed controlled substance>3 days was MAPS reviewed?: Prescribed <3 Days Referrals: None,Stated [Primary Care Provider] - 1-2 days
--- NOTE | 2021-06-11 17:13 | XR ---
EXAMINATION TYPE: XR foot complete RT DATE OF EXAM: 06/11/2021 COMPARISON: NONE HISTORY: Pain TECHNIQUE: 3 views FINDINGS: Metatarsals are intact. I see no fracture nor dislocation. There are no erosions. Joint spa mike are fairly normal. There is mild plantar and Achilles calcaneal spurring. IMPRESSION: Calcaneal spurring. No fracture.
[2021-06-11 17:56] VITALS: BP 154/98; PULSE 65
== END 2021-06-11 17:56 | disposition home or self-care (01) ==
LOC: EC 15:48
DX: M79.671 Pain in right foot (principal); I10 Essential (primary) hypertension; F17.200 Nicotine dependence, unspecified, uncomplicated; F12.90 Cannabis use, unspecified, uncomplicated; Z83.3 Family history of diabetes mellitus; Z87.19 Personal history of other diseases of the digestive system; W22.8XXA Striking against or struck by other objects, initial encounter
CPT/HCPCS: 99283

== ENCOUNTER 2021-06-21 08:06 | Emergency (ER) | payer BC, OTHER ==
[2021-06-21 08:11] VITALS: BP 169/105; PULSE 84; RESP 18; TEMP 97.8
[2021-06-21] MEDS ORDERED: KETOROLAC 15 MG/ML 1 ML VIAL IM STA (08:17)
--- NOTE | 2021-06-21 08:26 | ED ---
Lower Extremity Injury HPI - General Chief Complaint: Extremity Injury, Lower Stated Complaint: Foot pain Time Seen by Provider: 06/21/21 08:11 Source: patient Mode of arrival: wheelchair Limitations: no limitations - History of Present Illness Initial Comments: 41 year-old male patient presents to the emergency department for evaluation of right foot pain and swelling. Patient states that two weeks ago she injured the foot at work. States she hit it on cart. States that her foot has been swelling and this morning she was unable to bear weight due to the pain. She denies any numbness or tingling. Denies ankle pain. Patient denies any headache, neck pain, back pain, chest pain, shortness of breath, dizziness, weakness, abdominal pain, nausea, vomiting, or difficulties with bowel movements or urination. - Related Data Home Medications Medication Instructions Recorded Confirmed Mv-Mn/C/Glutamin/Lysin/[id number] 1 tab PO DAILY 11/04/19 06/21/21 [Airborne Gummies] Allergies Allergy/AdvReac Type Severity Reaction Status Date / Time No Known Allergies Allergy Verified 06/21/21 08:55 Review of Systems ROS Statement: Those systems with pertinent positive or pertinent negative responses have been documented in the HPI. ROS Other: All systems not noted in ROS Statement are negative. Past Medical History Past Medical History: GERD/Reflux, GI Bleed, Hypertension Additional Past Medical History / Comment(s): Anal fissure, hemorrhoids, lower GI bleed History of Any Multi-Drug Resistant Organisms: None Reported Past Surgical History: Section, Hysterectomy, Tubal Ligation Additional Past Surgical History / Comment(s): colonoscopy Past Anesthesia/Blood Transfusion Reactions: No Reported Reaction, Motion Sickness Past Psychological History: Anxiety, Depression Smoking Status: Current every day smoker Past Alcohol Use History: Daily Past Drug Use History: Marijuana - Past Family History Father History Unknown: Yes Additional Family Medical History / Comment(s): Pt does not know her father's medical hx. Mother Family Medical History: Diabetes Mellitus, Renal Disease Additional Family Medical History / Comment(s): Mother from renal failure General Exam Limitations: no limitations General appearance: alert, in no apparent distress, other (This is a well developed, well nourished adult female patient in no acute distress. V/S upon presentation are temperature 97.8, pulse 84, resp 18, BP 169/105, Pulse ox 100%. ) ENT exam: Present: normal exam, normal oropharynx, mucous membranes moist Respiratory exam: Present: normal lung sounds bilaterally. Absent: respiratory distress, wheezes, rales, rhonchi, stridor Cardiovascular Exam: Present: regular rate, normal rhythm, normal heart sounds. Absent: systolic murmur, diastolic murmur, rubs, gallop, clicks Extremities exam: Present: full ROM, tenderness (right dorsal foot), normal capillary refill, other (No soft tissue swelling. Skin is warm and dry. Cap refill less than 2 seconds. Pedal pulses 2+.). Absent: pedal edema, joint swelling, calf tenderness Neurological exam: Present: alert, oriented X3, CN II-XII intact Psychiatric exam: Present: normal affect, normal mood Skin exam: Present: warm, dry, intact, normal color. Absent: rash Course Vital Signs 06/21/21 08:08 Temperature 97.8 F Pulse Rate 84 Respiratory 18 Rate Blood Pressure 169/105 O2 Sat by Pulse 100 Oximetry Medical Decision Making - Medical Decision Making 41-year-old female patient presents to the emergency department today for evaluation of persistent right foot pain and swelling after injury 2 weeks ago. Physical examination is unremarkable. No swelling at this time. Pulses are intact. Neurovascular status intact. X-ray was negative. She'll be discharged to follow-up with orthopedics for further evaluation. Return parameters were discussed in detail. She verbalizes understanding and agrees this plan. Case discussed with my attending Dr. Lopez. - Radiology Data Radiology results: report reviewed, image reviewed 3 views of the right foot are obtained. Report reviewed in its entirety. Impression by Dr. Caicedo shows hallux valgus with bunion. No acute or healing fracture seen. Disposition Clinical Impression: Right foot pain Disposition: HOME SELF-CARE Condition: Good Instructions (If sedation given, give patient instructions): Metatarsalgia (DC) Additional Instructions: Follow up with orthopedics as soon as possible. Rest, ice, elevate the foot. Return to the emergency department for any new, worsening, or concerning symptoms. Is patient prescribed a controlled substance at d/c from ED?: No Referrals: Amol Rider MD [STAFF PHYSICIAN] - 1-2 days Time of Disposition: 08:40
--- NOTE | 2021-06-21 08:36 | XR ---
EXAMINATION TYPE: XR foot complete RT DATE OF EXAM: 06/21/2021 COMPARISON: NONE HISTORY: 41-year-old female injury 2 weeks ago, pain over the right metatarsals TECHNIQUE: 3 views FINDINGS: Mild hallux valgus with bunion. No acute fracture, subluxation, dislocation seen. Mild degenerative s purring at the medial malleolus. IMPRESSION: Hallux valgus with bunion. No acute or healing fractures seen. If symptoms persist, CT or MRI can be considered.
== END 2021-06-21 09:03 | disposition home or self-care (01) ==
LOC: EC 08:06
DX: M79.671 Pain in right foot (principal); I10 Essential (primary) hypertension; K21.9 Gastro-esophageal reflux disease without esophagitis; F17.200 Nicotine dependence, unspecified, uncomplicated; F12.90 Cannabis use, unspecified, uncomplicated; Z87.19 Personal history of other diseases of the digestive system; Z83.3 Family history of diabetes mellitus
CPT/HCPCS: 73630; 96372; 99283; J1885

== ENCOUNTER 2021-07-30 08:41 | Observation (INO) | payer BC ==
[2021-07-30] MEDS ORDERED: NITROGLYCERIN OINT 1 INCH/GM PACKET TOPICAL STA (09:19)
[2021-07-30] MEDS ORDERED: ASPIRIN 81 MG PO STA (09:19)
[2021-07-30] MEDS ORDERED: NITROGLYCERIN SL TABS 0.4 MG TAB SUBLINGUAL STA (09:19)
--- NOTE | 2021-07-30 09:21 | ED ---
General Adult HPI - General Chief complaint: Chest Pain Stated complaint: Dizziness,heart fluttering Time Seen by Provider: 07/30/21 09:00 Source: patient, RN notes reviewed, old records reviewed Mode of arrival: ambulatory Limitations: no limitations - History of Present Illness Initial comments: Is a 41-year-old female who presents emergency Department stating she is having chest pain and some shortness of breath. Patient states last Friday she was having chest pain went to [facility] they told her she was having heart attack she stayed overnight but signed out AMA the next day. Patient states the pain is been intermittent since then that this morning it was a little worse and she did vomit up her blood pressure meds so she decided come to the emergency department. Patient denies any fever chills or cough. Patient denies any diaphoretic episodes. Patient states the pain does not radiate anywhere feels like it's right in the front upper chest. Patient denies any abdominal pain patient denies any back pain. Patient denies any swelling in her legs or calf tenderness. Patient states she does have high blood pressure and is a smoker. - Related Data Home Medications Medication Instructions Recorded Confirmed Aspirin EC [Ecotrin Low Dose] 81 mg PO DAILY 07/30/21 07/30/21 Losartan Potassium 100 mg PO DAILY 07/30/21 07/30/21 hydroCHLOROthiazide [Hydrodiuril] 12.5 mg PO DAILY 07/30/21 07/30/21 Allergies Allergy/AdvReac Type Severity Reaction Status Date / Time No Known Allergies Allergy Verified 07/30/21 10:30 Review of Systems ROS Statement: Those systems with pertinent positive or pertinent negative responses have been documented in the HPI. ROS Other: All systems not noted in ROS Statement are negative. Past Medical History Past Medical History: GERD/Reflux, GI Bleed, Hypertension, Myocardial Infarction (non Q-wave) Additional Past Medical History / Comment(s): Anal fissure, hemorrhoids, lower GI bleed, alcoholism History of Any Multi-Drug Resistant Organisms: None Reported Past Surgical History: Section, Hysterectomy, Tubal Ligation Additional Past Surgical History / Comment(s): colonoscopy Past Anesthesia/Blood Transfusion Reactions: No Reported Reaction, Motion Sickness Past Psychological History: Anxiety, Depression Smoking Status: Current every day smoker Past Alcohol Use History: None Reported Past Drug Use History: Marijuana - Past Family History Father History Unknown: Yes Additional Family Medical History / Comment(s): Pt does not know her father's medical hx. Mother Family Medical History: Diabetes Mellitus, Renal Disease Additional Family Medical History / Comment(s): Mother from renal failure General Exam - General Exam Comments Initial Comments: GENERAL: Patient is well-developed and well-nourished. Patient is nontoxic and well- hydrated and is in mild distress. ENT: Neck is soft and supple. No significant lymphadenopathy is noted. Oropharynx is clear. Moist mucous membranes. Neck has full range of motion without eliciting any pain. EYES: The sclera were anicteric and conjunctiva were pink and moist. Extraocular movements were intact and pupils were equal round and reactive to light. Eyelids were unremarkable. PULMONARY: Unlabored respirations. Good breath sounds bilaterally. No audible rales rhonchi or wheezing was noted. CARDIOVASCULAR: There is a regular rate and rhythm without any murmurs gallops or rubs. ABDOMEN: Soft and nontender with normal bowel sounds. SKIN: Skin is clear with no lesions or rashes and otherwise unremarkable. NEUROLOGIC: Patient is alert and oriented x3. Cranial nerves II through XII are grossly intact. Motor and sensory are also intact. Normal speech, volume and content. Symmetrical smile. MUSCULOSKELETAL: Normal extremities with adequate strength and full range of motion. LYMPHATICS: No significant lymphadenopathy is noted PSYCHIATRIC: Normal psychiatric evaluation. Limitations: no limitations Course Vital Signs 07/30/21 07/30/21 07/30/21 09:10 09:39 10:31 Temperature 98.1 F Pulse Rate 96 90 83 Respiratory 18 18 17 Rate Blood Pressure 134/88 134/75 123/91 O2 Sat by Pulse 100 97 Oximetry Medical Decision Making - Medical Decision Making EKG shows sinus rhythm with occasional PAC at 85 bpm VT interval 258 QRS is 98 Q T interval 390 QTC is [address] segment elevation however there is inverted T waves in 1 and aVL as well as V1 and V2. Chest x-ray shows no acute abnormality. I started the patient heparin because she stated she had a non-STEMI at the other hospital with an elevated troponin. Patient continued to have some chest pain in the emergency department. I spoke with some physicians Dr. Parsons she agreed to admit the patient admitted the patient I wrote admitting orders I consulted cardiology continue the aspirin heparin Nitropaste on the floor. - Lab Data Result diagrams: 07/30/21 09:20 07/30/21 09:20 Lab Results 07/30/21 07/30/21 07/30/21 Range/Units 09:20 09:20 09:20 WBC 14.0 H (3.8-10.6) k/uL RBC 4.52 (3.80-5.40) m/uL Hgb 14.3 (11.4-16.0) gm/dL Hct 43.2 (34.0-46.0) % MCV 95.6 (80.0-100.0) fL MCH 31.6 (25.0-35.0) pg MCHC 33.1 (31.0-37.0) g/dL RDW 14.7 (11.5-15.5) % Plt Count 369 (150-450) k/uL MPV 8.0 Neutrophils % 75 % Lymphocytes % 15 % Monocytes % 6 % Eosinophils % 3 % Basophils % 0 % Neutrophils # 10.4 H (1.3-7.7) k/uL Lymphocytes # 2.1 (1.0-4.8) k/uL Monocytes # 0.9 (0-1.0) k/uL Eosinophils # 0.4 (0-0.7) k/uL Basophils # 0.0 (0-0.2) k/uL PT 10.2 (9.0-12.0) sec INR 0.9 (<1.2) APTT 24.3 (22.0-30.0) sec Sodium 138 (137-145) mmol/L Potassium 3.4 L (3.5-5.1) mmol/L Chloride 99 (98-107) mmol/L Carbon Dioxide 29 (22-30) mmol/L Anion Gap 10 mmol/L BUN 10 (7-17) mg/dL Creatinine 1.43 H (0.52-1.04) mg/dL Est GFR (CKD-EPI)AfAm 52 (>60 ml/min/1.73 sqM) Est GFR (CKD-EPI)NonAf 45 (>60 ml/min/1.73 sqM) Glucose 176 H (74-99) mg/dL Calcium 9.8 (8.4-10.2) mg/dL Magnesium 1.8 (1.6-2.3) mg/dL Total Bilirubin 0.9 (0.2-1.3) mg/dL AST 33 (14-36) U/L ALT 16 (4-34) U/L Alkaline Phosphatase 66 (38-126) U/L Troponin I (0.000-0.034) ng/mL Total Protein 7.9 (6.3-8.2) g/dL Albumin 4.7 (3.5-5.0) g/dL 07/30/ Range/Units 09:20 WBC (3.8-10.6) k/uL RBC (3.80-5.40) m/uL Hgb (11.4-16.0) gm/dL Hct (34.0-46.0) % MCV (80.0-100.0) fL MCH (25.0-35.0) pg MCHC (31.0-37.0) g/dL RDW (11.5-15.5) % Plt Count (150-450) k/uL MPV Neutrophils % % Lymphocytes % % Monocytes % % Eosinophils % % Basophils % % Neutrophils # (1.3-7.7) k/uL Lymphocytes # (1.0-4.8) k/uL Monocytes # (0-1.0) k/uL Eosinophils # (0-0.7) k/uL Basophils # (0-0.2) k/uL PT (9.0-12.0) sec INR (<1.2) APTT (22.0-30.0) sec Sodium (137-145) mmol/L Potassium (3.5-5.1) mmol/L Chloride (98-107) mmol/L Carbon Dioxide (22-30) mmol/L Anion Gap mmol/L BUN (7-17) mg/dL Creatinine (0.52-1.04) mg/dL Est GFR (CKD-EPI)AfAm (>60 ml/min/1.73 sqM) Est GFR (CKD-EPI)NonAf (>60 ml/min/1.73 sqM) Glucose (74-99) mg/dL Calcium (8.4-10.2) mg/dL Magnesium (1.6-2.3) mg/dL Total Bilirubin (0.2-1.3) mg/dL AST (14-36) U/L ALT (4-34) U/L Alkaline Phosphatase (38-126) U/L Troponin I 0.020 (0.000-0.034) ng/mL Total Protein (6.3-8.2) g/dL Albumin (3.5-5.0) g/dL Critical Care Time Critical Care Time: Yes Total Critical Care Time: 35 Disposition Clinical Impression: Unstable angina pectoris, Renal insufficiency, Hypokalemia Disposition: ADMITTED IP TO THIS HOSP Referrals: None,Stated [Primary Care Provider] - 1-2 days Time of Disposition: 10:46
[2021-07-30 09:39] LABS: Basophils % (A) 0 %; Eosinophils # (A) 0.4 k/uL (0-0.7); Eosinophils % (A) 3 %; HCT 43.2 % (34.0-46.0); HGB 14.3 gm/dL (11.4-16.0); Lymphocytes # (A) 2.1 k/uL (1.0-4.8); Lymphocytes % (A) 15 %; MCH 31.6 pg (25.0-35.0); MCHC 33.1 g/dL (31.0-37.0); MCV 95.6 fL (80.0-100.0); Monocytes # (A) 0.9 k/uL (0-1.0); Monocytes % (A) 6 %; Neutrophils # (A) 10.4 k/uL (1.3-7.7); Neutrophils % (A) 75 %; Platelet Count 369 k/uL (150-450); RBC 4.52 m/uL (3.80-5.40); RDW 14.7 % (11.5-15.5)
[2021-07-30 09:49] LABS: Albumin 4.7 g/dL (3.5-5.0); Calcium 9.8 mg/dL (8.4-10.2); Magnesium 1.8 mg/dL (1.6-2.3); Potassium 3.4 mmol/L (3.5-5.1); Total Bilirubin 0.9 mg/dL (0.2-1.3); Total Protein 7.9 g/dL (6.3-8.2)
[2021-07-30 09:51] LABS: INR 0.9 (<1.2); Partial Thromboplastin Time 24.3 sec (22.0-30.0); Prothrombin Time 10.2 sec (9.0-12.0)
--- NOTE | 2021-07-30 10:17 | XR ---
EXAMINATION TYPE: XR chest 2V DATE OF EXAM: 07/30/2021 COMPARISON: Chest x-ray 11/04/2019 HISTORY: Chest pain TECHNIQUE: Frontal and lateral views of the chest are obtained. FINDINGS: There is no focal air space opacity, pleural effusion, or pneumothorax seen. The cardiac silhouette size is within normal limits. There are overlying leads, artifacts. The osseous structure s are intact. IMPRESSION: No acute cardiopulmonary process.
[2021-07-30] MEDS ORDERED: HEPARIN SODIUM 1,000 UN/ML (10ML VL) IV ONE (10:42)
[2021-07-30] MEDS ORDERED: HEPARIN SOD,PORK IN 0.45% NACL 25,000 UNIT in 0.45% NACL 1 250ML.BAG IV SCH (10:45)
[2021-07-30] MEDS ORDERED: NITROGLYCERIN SL TABS 0.4 MG TAB SUBLINGUAL PRN (10:46)
--- NOTE | 2021-07-30 11:34 | P.HPIM ---
<Mejia Roy - Last Filed: 07/30/21 12:46> History of Present Illness H&P Date: 07/30/21 History of Presenting Illness: Patient is a 41-year-old female with a past medical history of nicotine dependence smoking half a pack to 1 pack of cigarettes per day for the past 21 years, hypertension, and cannabis use. Patient presented to the hospital with a chief complaint of having chest pains, palpitations, and lightheadedness/dizziness Intermittently over the past 2 weeks. Patient was seen on 07/24/21 at [facility] for reports of dizziness/lightheadedness and was diagnosed with hypertensive emergency and an NSTEMI with elevated troponin of 313. Patient states that she did not like the care she was receiving there so she left AMA. Patient presented to our facility today as she continues to report intermittent episodes of chest pain, palpitations, lightheadedness, dizz iness, and states that she has been awakening during the night with sudden shortness of breath in which she has to sit up in bed and feels as though she is gasping for air. In the emergency department patient was seen and fully evaluated she was found to have a normal troponin of 0.020. EKG showing normal sinus rhythm at 85 bpm with occasional PACs, noted T-wave inversion in lateral leads I and aVL which is slightly improved when compared to previous EKG completed on 11/04/19 in which patient had T-wave inversion in lateral leads I, aVL, V5 and V6.. Chest x-ray negative for acute cardiopulmonary process. Additional lab findings revealed Leukocytosis with WBC count of 14.0, hypokalemia with potassium of 3.4 hyperglycemia with glucose of 176, and an elevated creatinine of 1.43 which is unchanged when compared to laboratory findings obtained from [facility] on 07/24/21, but elevated when compared to previous creatinine levels obtained from our records on 11/05/19 revealing a creatinine of 0.82. Upon physical examination, patient currently reports she is resting comfortably but again reports intermittent chest pains,, palpitations, and lightheadedness. She denies episodes of diaphoresis, nausea, shortness of breath with exertion, episodes of vomiting, or experiencing any noted numbness/tingling/weakness/swelling in her extremities. Patient denies having a previous cardiac history and reports medication compliance with her blood pressure medications. Patient denies having family history of sudden cardiac before the age of 50 and denies family history of significant cardiac disease before the age of 60. Review of systems: Pertinent positives and negatives as discussed in HPI, a complete review of systems was performed and all other systems are negative. Physical exam: Vital signs reviewed and stable. General: Nontoxic, no distress and appears stated age. Derm: Skin warm and dry, normal coloration for ethnicity. Head: Atraumatic, normocephalic and symmetric. Eyes: EOMs intact, no lid lag, and anicteric sclera Mouth: no lip lesions, mucus membranes moist Cardiovascular: regular rate and rhythm with normal S1S2, no murmur, positive posterior tibial pulses bilaterally, and cap refill < 2 seconds. Lungs: Respirations even, regular, and unlabored on room air. Lungs CTA bilaterally, no rhonchi, no rales, no wheezing, and no accessory muscle usage. Abdominal: soft, nontender to palpation, no guarding, no appreciable organomegaly Ext: ROM intact. No gross muscle atrophy, no edema, no contractures Neuro: Speech clear, face symmetrical and CN II-XII grossly intact with no noted focal neuro deficits Psych: Alert and oriented to person, place, time, and situation. Appropriate and pleasant affect. Assessment and Plan of Care: Chest pain accompanied by palpitations and reports of dizziness/lightheadedness, rule out ACS -Cardiology consult -Continue heparin infusion, pharmacy to dose. -Complete echocardiogram -Telemetry monitoring -Trend troponins -Cardiac diet -Daily Aspirin, atorvastatin, and metoprolol -Lipid profile and Hgb A1c with a.m. labs. Elevated renal function, possibly acute kidney injury however suspected CKD -Hold nephrotoxic medications including hydrochlorothiazide and Losartan. -Fluid hydration with IV fluids -Continue close monitoring with repeat a.m. labs. Hypokalemia -Potassium 3.4, replaced. -We will continue to monitor with repeat a.m. labs. Hypertension -At this time we will hold losartan and hydrochlorothiazide due to possible SHARDA. -Monitor vitals closely and patient started on metoprolol 12.5 mg twice daily. Nicotine dependence -Patient To continue to receive education and encouragement on the benefits of s moking cessation and the risks Associated with continued use up to and including . -Nicotine Patch Cannabis use disorder -Patient reports daily marijuana use. -Educate and encourage patient on the benefits of cessation and risks associated with continued use/abuse. The patient is admitted with an anticipated greater than 2 midnight stay for evaluation of Chest pain. Surrogate decision-maker: Patient's daughter CODE STATUS: Full code DVT prophylaxis: Heparin Discussed with: Patient and RN Anticipated discharge date: 1-[address]: Home A total of 45 minutes was spent on the care of this complex patient more than 50% of the time was spent in counseling and care coordination. Past Medical History Past Medical History: GERD/Reflux, GI Bleed, Hypertension, Myocardial Infarction (non Q-wave) Additional Past Medical History / Comment(s): Anal fissure, hemorrhoids, lower GI bleed, alcoholism History of Any Multi-Drug Resistant Organisms: None Reported Past Surgical History: Section, Hysterectomy, Tubal Ligation Additional Past Surgical History / Comment(s): colonoscopy Past Anesthesia/Blood Transfusion Reactions: No Reported Reaction, Motion Sickness Past Psychological History: Anxiety, Depression Smoking Status: Current every day smoker Past Alcohol Use History: None Reported Past Drug Use History: Marijuana - Past Family History Father History Unknown: Yes Additional Family Medical History / Comment(s): Pt does not know her father's medical hx. Mother Family Medical History: Diabetes Mellitus, Renal Disease Additional Family Medical History / Comment(s): Mother from renal failure Medications and Allergies Home Medications Medication Instructions Recorded Confirmed Type Aspirin EC [Ecotrin Low Dose] 81 mg PO DAILY 07/30/21 07/30/21 History Losartan Potassium 100 mg PO DAILY 07/30/21 07/30/21 History hydroCHLOROthiazide [Hydrodiuril] 12.5 mg PO DAILY 07/30/21 07/30/21 History Allergies Allergy/AdvReac Type Severity Reaction Status Date / Time No Known Allergies Allergy Verified 07/30/21 10:30 Physical Exam Vitals: Vital Signs Temp Pulse Resp BP Pulse Ox 07/30/21 10:31 83 17 123/91 97 07/30/21 09:39 90 18 134/75 07/30/21 09:10 98.1 F 96 18 134/88 100 Intake and Output 07/29/21 07/30/21 07/30/21 22:59 06:59 14:59 Other: Weight 67.585 kg Results CBC & Chem 7: 07/30/21 09:20 07/30/21 09:20 Labs: Abnormal Lab Results - Last 24 Hours (Table) 07/30/21 07/30/21 Range/Units 09:20 09:20 WBC 14.0 H (3.8-10.6) k/uL Neutrophils # 10.4 H (1.3-7.7) k/uL Potassium 3.4 L (3.5-5.1) mmol/L Creatinine 1.43 H (0.52-1.04) mg/dL Glucose 176 H (74-99) mg/dL <Susu Parsons - Last Filed: 07/30/21 16:18> History of Present Illness Patient seen and examined independently. Patient was also seen by Mejia Roy NP and case was discussed. I am in agreement with subjective, physical exam, assessment and plan as written above and amended below. No current chest pain, feeling well. States they're taking care of her much better than the other hospital. General: non toxic, no distress, appears at stated age Derm: warm, dry Head: atraumatic, normocephalic, symmetric Eyes: EOMI, no lid lag, anicteric sclera Mouth: no lip lesion, mucus membranes moist Cardiovascular: S1S2 reg, no murmur, positive posterior tibial pulse bilateral, Lungs: CTA bilateral, no rhonchi, no rales , no accessory muscle use Ext: no gross muscle atrophy, no edema, no contractures Neuro: CN II-XI grossly intact, no focal neuro deficits Psych: Alert, oriented, appropriate affect Physical Exam Osteopathic Statement: *. No significant issues noted on an osteopathic structural exam other than those noted in the History and Physical/Consult. Vitals: Vital Signs Temp Pulse Resp BP Pulse Ox 07/30/21 15:16 91 17 145/107 98 07/30/21 11:49 79 14 131/91 100 07/30/21 10:31 83 17 123/91 97 07/30/21 09:39 90 18 134/75 07/30/21 09:10 98.1 F 96 18 134/88 100 Intake and Output 07/30/21 07/30/21 07/30/21 06:59 14:59 22:59 Other: Weight 67.585 kg Results CBC & Chem 7: 07/30/21 09:20 07/30/21 09:20 Labs: Abnormal Lab Results - Last 24 Hours (Table) 07/30/21 07/30/21 Range/Units 09:20 09:20 WBC 14.0 H (3.8-10.6) k/uL Neutrophils # 10.4 H (1.3-7.7) k/uL Potassium 3.4 L (3.5-5.1) mmol/L Creatinine 1.43 H (0.52-1.04) mg/dL Glucose 176 H (74-99) mg/dL
[2021-07-30] MEDS: POTASSIUM CHLORIDE 10 MEQ in WATER FOR INJECTION 1 100ML.BAG IVPB SCH ×3 (11:48→19:05)
[2021-07-30] MEDS: NITROGLYCERIN OINT 1 INCH/GM PACKET TOPICAL SCH ×2 (11:51→19:05)
[2021-07-30] MEDS ORDERED: LOSARTAN 50 MG TAB PO SCH (12:30)
--- NOTE | 2021-07-30 12:46 | P.CRDCN ---
History of Present Illness History of present illness: HISTORY OF PRESENTING ILLNESS This is a pleasant 41-year-old female past medical history significant for marijuana use, etoh use (2-3 glasses of wine per day, last drink 48 hours ago), hypertension, mild cardiomyopathy on echocardiogram in 2019. EF 45-50%. 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 We have been asked to see in consultation for chest pain. Patient is seen and examined in the emergency department. Patient presented to [facility] Friday07[facility]24[facility]21 with dizziness and lightheadedness that was constant. Patient's work up revealed elevated high sensitivity troponin, patient subsequently left AMA. She endorses complains of palpitations, dizziness, some mild shortness of breath. This morning she had an episode of chest discomfort with associated nausea and vomiting. She denies any specific aggravating or alleviating factors. She endorses symptoms of orthopnea. She sle eps with 4 pillows at night. She denies shortness of breath, lower extremity edema, syncope or weakness. She continues to smoke marijuana daily. She last drank wine about 48 hours ago. She states she is scheduled to see a new PCP this week. Current home medications include aspirin 81 mg daily, losartan 100 mg daily, hydrochlorothiazide 12.5 mg daily. DIAGNOSTICS EKG reveals sinus rhythm, PAC, heart rate 85, LVH, T-wave inversions in leads I, and aVL. Prior EKG in 2019 with similar results. Chest xray no active cardiopulmonary disease Most recent echocardiogram 2019 revealed EF of 4550% severe concentric left ventricular hypertrophy, mild global hypokinesis of LV, LA severely dilated, mi ld aortic regurgitation, mild mitral regurgitation, mild tricuspid regurgitation. Laboratory reviewed, WBC 14, Hgb 14.3, Plt 369, Sodium 138, K 3.4, BUN 10, sCr 1.43, Glucose 176, Mag 1.8, Troponin negative x 1, Liver enzymes within normal limits. REVIEW OF SYSTEMS At the time of my exam: CONSTITUTIONAL: Denies fever or chills. CARDIOVASCULAR: +chest pain, + shortness of breath, +orthopnea, + palpitations. RESPIRATORY: Denies cough. GASTROINTESTINAL: +nausea, +vomiting Denies abdominal pain, diarrhea, constipation MUSCULOSKELETAL: Denies myalgias. NEUROLOGIC: Denies numbness, tingling, headacbe or weakness. ENDOCRINE: Denies fatigue, weight change, polydipsia or polyurina. GENITOURINARY: Denies burning, hematuria or urgency with micturation. HEMATOLOGIC: Denies history of anemia or bleeding. PHYSICAL EXAMINATION Blood pressure 131/91 heart rate 79 afebrile and maintaining oxygen saturation 100% on 2L nasal cannula CONSTITUTIONAL: No apparent distress. HEENT: Head is normocephalic. Pupils are equal, round. Sclerae anicteric. Mucous membranes of the mouth are moist. No JVD. No carotid bruit. CHEST EXAMINATION: Lungs are clear to auscultation. No chest wall tenderness is noted on palpation or with deep breathing. HEART EXAMINATION: Regular rate and rhythm. S1, S2 heard. Systolic ejection murmur noted. ABDOMEN: Soft, nontender. Positive bowel sounds. EXTREMITIES: 2+ peripheral pulses, no lower extremity edema and no calf tenderness. SKIN: warm, dry NEUROLOGIC EXAMINATION: Patient is awake, alert and oriented x3. ASSESSMENT Chest pain, initial troponin negative, EKG with no new evidence of ischemia Hypertension Acute Kidney Injury ETOH use daily Marijuana use Cardiomyopathy, mild decrease in EF 45-50%- ischemic vs non-ischemic- repeat echocardiogram pending Hypokalemia PLAN -Obtain 2D echocardiogram and doppler study to assess cardiac structure and func tion. -Trend troponins -Replace potassium per protocol -Lipid Panel, hemoglobin A1C -ACEI/ARB on hold to due SHARDA -Pending on the above workup possible stress test tomorrow vs coronary angiography -Will keep patient NPO after midnight -Smoking cessation discussed and highly recommended. Thank you kindly for this consultation. Nurse Practitioner note has been reviewed, I agree with a documented findings and plan of care. Patient was seen and examined. Past Medical History Past Medical History: GERD/Reflux, GI Bleed, Hypertension, Myocardial Infarction (non Q-wave) Additional Past Medical History / Comment(s): Anal fissure, hemorrhoids, lower GI bleed, alcoholism History of Any Multi-Drug Resistant Organisms: None Reported Past Surgical History: Section, Hysterectomy, Tubal Ligation Additional Past Surgical History / Comment(s): colonoscopy Past Anesthesia/Blood Transfusion Reactions: No Reported Reaction, Motion Sickness Past Psychological History: Anxiety, Depression Smoking Status: Current every day smoker Past Alcohol Use History: None Reported Past Drug Use History: Marijuana - Past Family History Father History Unknown: Yes Additional Family Medical History / Comment(s): Pt does not know her father's medical hx. Mother Family Medical History: Diabetes Mellitus, Renal Disease Additional Family Medical History / Comment(s): Mother from renal failure Medications and Allergies Home Medications Medication Instructions Recorded Confirmed Type Aspirin EC [Ecotrin Low Dose] 81 mg PO DAILY 07/30/21 07/30/21 History Losartan Potassium 100 mg PO DAILY 07/30/21 07/30/21 History hydroCHLOROthiazide [Hydrodiuril] 12.5 mg PO DAILY 07/30/21 07/30/21 History Allergies Allergy/AdvReac Type Severity Reaction Status Date / Time No Known Allergies Allergy Verified 07/30/21 10:30 Physical Exam Vitals: Vital Signs Temp Pulse Resp BP Pulse Ox 07/30/21 11:49 79 14 131/91 100 07/30/21 10:31 83 17 123/91 97 07/30/21 09:39 90 18 134/75 07/30/21 09:10 98.1 F 96 18 134/88 100 Intake and Output 07/29/21 07/30/21 07/30/21 22:59 06:59 14:59 Other: Weight 67.585 kg Results 07/30/21 09:20 07/30/21 09:20 Cardiac Enzymes 07/30/21 07/30/21 Range/Units 09:20 09:20 AST 33 (14-36) U/L Troponin I 0.020 (0.000-0.034) ng/mL Coagulation 07/30/21 Range/Units 09:20 PT 10.2 (9.0-12.0) sec APTT 24.3 (22.0-30.0) sec CBC 07/30/21 Range/Units 09:20 WBC 14.0 H (3.8-10.6) k/uL RBC 4.52 (3.80-5.40) m/uL Hgb 14.3 (11.4-16.0) gm/dL Hct 43.2 (34.0-46.0) % Plt Count 369 (150-450) k/uL Comprehensive Metabolic Panel 07/30/21 Range/Units 09:20 Sodium 138 (137-145) mmol/L Potassium 3.4 L (3.5-5.1) mmol/L Chloride 99 (98-107) mmol/L Carbon Dioxide 29 (22-30) mmol/L BUN 10 (7-17) mg/dL Creatinine 1.43 H (0.52-1.04) mg/dL Glucose 176 H (74-99) mg/dL Calcium 9.8 (8.4-10.2) mg/dL AST 33 (14-36) U/L ALT 16 (4-34) U/L Alkaline Phosphatase 66 (38-126) U/L Total Protein 7.9 (6.3-8.2) g/dL Albumin 4.7 (3.5-5.0) g/dL Current Medications Generic Name Dose Route Start Last Admin Trade Name Freq PRN Reason Stop Dose Admin Aspirin 81 mg 07/31/21 09:00 Aspirin 81 Mg PO DAILY JAN Heparin Sodium/Sodium Chloride 250 mls @ 8.11 mls/hr 07/30/21 10:45 07/30/21 11:44 25,000 unit/ Sodium Chloride IV 12 units/kg/hr .Q24H JAN 8.11 mls/hr Administration Protocol 12 UNITS/KG/HR Potassium Chloride 10 meq/ IV 100 mls @ 100 mls/hr 07/30/21 11:00 07/30/21 11:48 Solution IVPB 07/30/21 13:59 100 mls/hr Q1H JAN Administration Protocol Nitroglycerin 0.4 mg 07/30/21 10:46 Nitroglycerin Sl Tabs 0.4 Mg Tab SUBLINGUAL Q5M PRN Chest Pain Nitroglycerin 1 inch 07/30/21 12:00 07/30/21 11:51 Nitroglycerin Oint 1 Inch/Gm Packet TOPICAL Not Given Q6HR JAN Intake and Output 07/29/21 07/30/21 07/30/21 22:59 06:59 14:59 Other: Weight 67.585 kg Patient Weight 07/31/21 06:59 Weight 67.585 kg 07/30/21 09:20 07/30/21 09:20
[2021-07-30] MEDS ORDERED: NICOTINE 21MG/24HR PATCH TRANSDERM SCH (13:00)
[2021-07-30] MEDS: SODIUM CHLORIDE 0.9% 1,000 ML IV SCH ×2 (13:49→20:32)
[2021-07-30] MEDS: METOPROLOL TARTRATE 12.5 MG TAB PO SCH ×2 (16:39→20:32)
[2021-07-30 19:31] LABS: Amphetamine Screen,Urine Not Detected (NotDetected); Barbiturate Screen,Urine Not Detected (NotDetected); Benzodiazepines Screen,Urine Not Detected (NotDetected); Cocaine Screen,Urine Not Detected (NotDetected); Methadone Screen, Urine Not Detected (NotDetected); Opiate Screen,Urine Not Detected (NotDetected); Oxycodone Screen, Urine Not Detected (NotDetected); Phencyclidine Screen,Urine Not Detected (NotDetected); Tricyclic Antidepressant,Urine Not Detected (NotDetected); Urn Cannabinoid Scrn Detected (NotDetected)
[2021-07-30] MEDS ORDERED: ATORVASTATIN 40 MG TAB PO SCH (21:00)
[2021-07-30] MEDS ORDERED: MORPHINE SULFATE 4 MG/ML SYRINGE IVP PRN (23:06)
[2021-07-30] MEDS ORDERED: MELATONIN 3 MG TABLET PO SCH (23:15)
[2021-07-31] MEDS: NITROGLYCERIN OINT 1 INCH/GM PACKET TOPICAL SCH ×2 (00:10→04:54)
[2021-07-31 03:22] VITALS: TEMP 98.7
[2021-07-31] MEDS ORDERED: HEPARIN SODIUM 1,000 UN/ML (10ML VL) IV PRN (03:48)
[2021-07-31] MEDS: SODIUM CHLORIDE 0.9% 1,000 ML IV SCH (04:54)
[2021-07-31 06:43] LABS: African American GFR (CKD) 69 (>60 ml/min/1.73 sqM); Anion Gap 4 mmol/L; Blood Urea Nitrogen 8 mg/dL (7-17); Calcium 8.6 mg/dL (8.4-10.2); Carbon Dioxide 27 mmol/L (22-30); Chloride 106 mmol/L (98-107); Glucose 141 mg/dL (74-99); Magnesium 1.8 mg/dL (1.6-2.3); Non-African American GFR(CKD) 60 (>60 ml/min/1.73 sqM); Potassium 3.3 mmol/L (3.5-5.1); Sodium 137 mmol/L (137-145)
[2021-07-31 07:56] VITALS: BP 156/112; PULSE 76; RESP 18
[2021-07-31] MEDS ORDERED: POTASSIUM CHLORIDE 10 MEQ in WATER FOR INJECTION 1 100ML.BAG IVPB SCH (08:00)
[2021-07-31 08:45] LABS: HCT 35.1 % (37.2-46.3); HGB 11.6 g/dL (12.0-15.0); MCH 30.7 pg (27.0-32.0); MCV 92.9 fL (80.0-97.0); Mean Platelet Volume 11.4 fL (9.5-12.2); Platelet Count 300 X 10*3/uL (140-440); RBC 3.78 X 10*6/uL (4.10-5.20); WBC 9.69 X 10*3/uL (4.50-10.00)
[2021-07-31] MEDS ORDERED: NON FORMULARY DRUG (Losartan Potassium [Losartan Potassium] 100 MG Tablet) PO SCH (09:00)
[2021-07-31] MEDS ORDERED: LOSARTAN 50 MG TAB PO SCH (09:00)
[2021-07-31] MEDS ORDERED: ASPIRIN 325 MG TAB PO SCH (09:00)
[2021-07-31] MEDS ORDERED: ASPIRIN 81 MG PO SCH (09:00)
[2021-07-31] MEDS ORDERED: hydroCHLOROthiazide 12.5 MG CAP PO SCH (09:00)
--- NOTE | 2021-07-31 09:11 | P.DS ---
Providers Date of admission: 07/30/21 10:46 Expected date of discharge: 07/31/21 Attending physician: Susu Parsons, DO Consults: 07/30/21 10:46 Consult Physician Urgent Consulting Provider: [facility] Consult Reason/Comments: Unstable angina Do you want consulting provider notified?: Yes Primary care physician: Stated None Hospital Course: THIS IS NOT A DISCHARGE SUMMARU ONLY A SUMMARY OF CARE PATIENT LEFT AGAINST MEDICAL ADVICE........ Diagnoses received during admission: Chest pain accompanied by palpitations and reports of dizziness/lightheadedness, rule out ACS Elevated renal function, possibly acute kidney injury however suspected CKD Hypokalemia Hypertension Nicotine dependence Cannabis abuse disorder Medical Non-Compliance Hospital Course: Patient is a 41-year-old female with a past medical history of nicotine dependence smoking half a pack to 1 pack of cigarettes per day for the past 21 years, hypertension, and daily cannabis use. Patient presented to the hospital with a chief complaint of having chest pains, palpitations, and lightheadedness/dizziness Intermittently over the past 2 weeks. Patient was seen on 07/24/21 at [facility] for reports of dizziness/lightheadedness and was diagnosed with hypertensive emergency and an NSTEMI with elevated troponin of 313. Patient states that she did not like the care she was receiving there so she left AMA. Patient presented to our facility today as she continues to report intermittent episodes of chest pain, palpitations, lightheadedness, dizziness, and states that she has been awakening during the night with sudden shortness of breath in which she has to sit up in bed and feels as though she is gasping for air. In the emergency department patient was seen and fully evaluated she was found to have a normal troponin of 0.020. EKG showing normal sinus rhythm at 85 bpm with occasional PACs, noted T-wave inversion in lateral leads I and aVL which is slightly improved when compared to previous EKG completed on 11/04/19 in which patient had T-wave inversion in lateral leads I, aVL, V5 and V6.. Chest x-ray negative for acute cardiopulmonary process. Additional lab findings revealed Leukocytosis with WBC count of 14.0, hypokalemia with potassium of 3.4 hyperglycemia with glucose of 176, and an elevated creatinine of 1.43 which is unchanged when compared to laboratory findings obtained from [facility] on 07/24/21, but elevated when compared to previous creatinine levels obtained from our records on 11/05/19 revealing a creatinine of 0.82. Patient denied having a previous cardiac history and reports medication compliance with her blood pressure medications. Patient denies having family history of sudden cardiac before the age of 50 and denies family history of significant cardiac disease before the age of 60. Patient was admitted under our services with consultation to cardiology. A cardiogram was completed and currently pending results. A shunt was on heparin infusion while awaiting cardiology evaluation for possible cardiac cath versus NST this morning. On arrival to bedside this morning at 8:50 AM, patient had already left AMA. RN reports patient just left AGAINST MEDICAL ADVICE because she did not like the care she was receiving care at our facility. Plan - Discharge Summary Discharge Rx Participant: No New Discharge Prescriptions: No Action Losartan Potassium 100 mg PO DAILY hydroCHLOROthiazide [Hydrodiuril] 12.5 mg PO DAILY Aspirin EC [Ecotrin Low Dose] 81 mg PO DAILY Discharge Medication List Aspirin EC [Ecotrin Low Dose] 81 mg PO DAILY 07/30/21 [History] Losartan Potassium 100 mg PO DAILY 07/30/21 [History] hydroCHLOROthiazide [Hydrodiuril] 12.5 mg PO DAILY 07/30/21 [History] Follow up Appointment(s)/Referral(s): None,Stated [Primary Care Provider] - 1-2 days Discharge Disposition: Left Against Medical Advice
--- NOTE | 2021-07-31 09:22 | ECHOF ---
Referral Reason: MEASUREMENTS -------- HEIGHT: 162.6 cm WEIGHT: 67.6 kg BP: RVIDd: 3.0 cm (< 3.3) IVSd: 1.6 cm (0.6 - 1.1) LVIDd: 4.0 cm (3.9 - 5.3) LVPWd: 1.7 cm (0.6 - 1.1) IVSs: 1.8 cm LVIDs: 3.1 cm LVPWs: 2.1 cm LAESV Index (A-L): 22.94 ml/m Ao Diam: 2.6 cm (2.0 - 3.7) AV Cusp: 1.3 cm (1.5 - 2.6) LA Diam: 3.2 cm (2.7 - 3.8) MV EXCURSION: 13.838 mm (> 18.000) MV EF SLOPE: 45 mm/s (70 - 150) EPSS: 0.8 cm MV E Trino: 0.46 m/s MV DecT: 117 ms MV A Trino: 0.94 m/s MV E/A Ratio: 0.48 AR PHT: 614 ms RAP: 5.00 mmHg RVSP: 19.97 mmHg FINDINGS -------- Sinus rhythm. This was a technically adequate study. The left ventricular size is normal. There is moderate concentric left ventricular hypertrophy. O verall left ventricular systolic function is low-normal with, an EF between 50 - 55 %. The right ventricle is normal in size. Normal LA size by volume 22+/-6 ml/m2. The right atrial size is normal. Interatrial and interventricular septum intact. There is mild aortic valve sclerosis. There is mild aortic regurgitation. There is no evidence of aortic stenosis. The mitral valve is normal. Mild mitral regurgitation is present. The tricuspid valve appears structurally normal. Mild tricuspid regurgitation present. Right vent ricular systolic pressure is normal at < 35 mmHg. The right ventricular systolic pressure, as measu red by Doppler, is 19.97mmHg. There is no pulmonic regurgitation present. The aortic root size is normal. IVC Not well visulized. There is no pericardial effusion. CONCLUSIONS -------- 1. There is moderate concentric left ventricular hypertrophy. 2. Overall left ventricular systolic function is low-normal with, an EF between 50 - 55 %. 3. Normal LA size by volume 22+/-6 ml/m2. 4. There is mild aortic valve sclerosis. 5. There is mild aortic regurgitation. 6. Mild mitral regurgitation is present. 7. Mild tricuspid regurgitation present. STAFF AUDITOR: Carmen Wilkinson RDCS
--- NOTE | 2021-07-31 10:45 | PN ---
PROGRESS NOTE Ms. Mace is a 41-year-old female who presented yesterday with symptoms of chest discomfort. She has a history of hypertension, history of chronic tobacco use and alcohol use. She is feeling well this morning. She is denying any chest pain. She denies any dizziness or palpitation. She denies any nausea. Hemodynamically she is stable. She continues to be on aspirin once a day, IV heparin. PHYSICAL EXAMINATION: Blood pressure running in the 150s with heart rate in the 70s. LUNGS: Clear. HEART: Regular rate and rhythm. S1, S2. No S3. No rub appreciated. ABDOMEN: Soft, nontender. Positive bowel sounds. No organomegaly. EXTREMITIES: No edema. Intact distal pulses. LAB DATA: Potassium 3.3. BUN and creatinine of 8 and 1.13. Troponin 0.02, 0.021, 0.02. IMPRESSION: 1. Chest discomfort of unclear etiology. No evidence of acute myocardial infarction. 2. History of hypertension. 3. Chronic tobacco use. 4. Chronic alcohol intake. RECOMMENDATIONS: I will recommend to stop her heparin. I have discussed with the patient the findings. I recommended proceeding with a stress echocardiogram to further evaluate her status and guide her treatment. She declined and wants to leave AGAINST MEDICAL ADVICE. I have discussed with her the findings and the recommendation. If she is willing, we will proceed with the stress test. Otherwise, she can follow up with her primary care physician. TANO / BRANDI: [id number] /
[2021-07-31 11:19] LABS: Chol/HDL Ratio 4.26; LDL Cholesterol,Calculated 67.6 mg/dL (0.0-131.0); VLDL Calculation 43.4 mg/dL (5.00-40.00)
[2021-07-31 14:01] LABS: Hemoglobin A1C 6.3 % (4.0-6.0)
== END 2021-07-31 08:44 | disposition left against medical advice (07) ==
LOC: EC 08:41 → 6NMEDSUR 10:46
PROVIDERS: ADMIT Internal Medicine; ATTEND Internal Medicine
DX: R07.89 Other chest pain (principal); R94.4 Abnormal results of kidney function studies; Z91.19 Patient's noncompliance with other medical treatment and regimen; Z53.29 Procedure and treatment not carried out because of patient's decision for other reasons; R79.89 Other specified abnormal findings of blood chemistry; I11.9 Hypertensive heart disease without heart failure; D72.829 Elevated white blood cell count, unspecified; R73.9 Hyperglycemia, unspecified; E87.6 Hypokalemia; R00.2 Palpitations; R06.01 Orthopnea; I08.3 Combined rheumatic disorders of mitral, aortic and tricuspid valves; I49.1 Atrial premature depolarization; R42 Dizziness and giddiness; R11.2 Nausea with vomiting, unspecified; I42.9 Cardiomyopathy, unspecified; I25.2 Old myocardial infarction; K21.9 Gastro-esophageal reflux disease without esophagitis; K60.2 Anal fissure, unspecified; K64.9 Unspecified hemorrhoids; F32.9 Major depressive disorder, single episode, unspecified; F41.9 Anxiety disorder, unspecified; F17.210 Nicotine dependence, cigarettes, uncomplicated; F12.19 Cannabis abuse with unspecified cannabis-induced disorder; Z79.82 Long term (current) use of aspirin; Z79.899 Other long term (current) drug therapy; Z87.19 Personal history of other diseases of the digestive system; Z98.891 History of uterine scar from previous surgery; Z90.710 Acquired absence of both cervix and uterus; Z98.51 Tubal ligation status; Z98.890 Other specified postprocedural states; Z84.1 Family history of disorders of kidney and ureter; Z83.3 Family history of diabetes mellitus
CPT/HCPCS: 96376 ×2; 96366 ×3; 96368; 96365; 99285; 36415; 94760; 93005; 93306; 80061; 80053; 80048; 83735 ×2; 84484; 85025; 85027; 85610; 85730 ×2; 80306; 83036; 87635; 71046; G0378 ×2; S4990; J1644 ×3; J3480

== ENCOUNTER 2021-07-31 19:15 | Observation (INO) | payer BC ==
[2021-07-31 20:27] LABS: Basophils # (A) 0.1 k/uL (0-0.2); Basophils % (A) 0 %; Eosinophils # (A) 0.3 k/uL (0-0.7); Eosinophils % (A) 2 %; HCT 40.6 % (34.0-46.0); HGB 13.2 gm/dL (11.4-16.0); Lymphocytes # (A) 2.2 k/uL (1.0-4.8); Lymphocytes % (A) 15 %; MCH 31.3 pg (25.0-35.0); MCHC 32.5 g/dL (31.0-37.0); MCV 96.3 fL (80.0-100.0); Mean Platelet Volume 8.1; Monocytes % (A) 7 %; Neutrophils # (A) 10.9 k/uL (1.3-7.7); Neutrophils % (A) 75 %; Platelet Count 370 k/uL (150-450); RBC 4.22 m/uL (3.80-5.40); RDW 14.3 % (11.5-15.5); WBC 14.6 k/uL (3.8-10.6)
[2021-07-31] MEDS ORDERED: NALOXONE 0.4 MG/ML 1 ML VIAL IV PRN (20:27)
--- NOTE | 2021-07-31 20:27 | ED ---
General Adult HPI - General Chief complaint: Arrhythmia/Palpitations Stated complaint: palpitations Time Seen by Provider: 07/31/21 20:07 Source: patient Mode of arrival: wheelchair Limitations: no limitations - History of Present Illness Initial comments: Dictation was produced using [employer] dictation software. please excuse any gramma tical, word or spelling errors. Chief Complaint: 41-year-old female who was recently admitted to the hospital for chest pain left AGAINST MEDICAL ADVICE and returns for completion of thomas atment. History of Present Illness: 41-year-old nicotine dependent female. She was seen here in emergency department yesterday. She was admitted for chest pain. Patient was dissatisfied with the care she received left AGAINST MEDICAL ADVICE. She states that her biggest issue was with some of the staff's bedside manner. She ended up being discharged with her primary care doctor and was convinced to come back to the hospital to be readmitted. Patient states that her workup was not incomplete the time she left AGAINST MEDICAL ADVICE. Patient still having symptoms though at the bedside she denies any active chest pain at this time. The ROS documented in this emergency department record has been reviewed and confirmed by me. Those systems with pertinent positive or negative responses have been documented in the HPI. All other systems are other negative and/or noncontributory. PHYSICAL EXAM: General Impression: Alert and oriented x3, not in acute distress HEENT: Normocephalic atraumatic, extra-ocular movements intact, pupils equal and reactive to light bilaterally, mucous membranes moist. Cardiovascular: Heart regular rate and rhythm Chest: Able to complete full sentences, no retractions, no tachypnea Abdomen: abdomen soft, non-tender, non-distended, no organomegaly Musculoskeletal: Pulses present and equal in all extremities, no peripheral edema Motor: no focal deficits noted Neurological: CN II-XII grossly intact, no focal motor or sensory deficits noted Skin: Intact with no visualized rashes Psych: Normal affect and mood ED course: 41-year-old well-appearing female admitted yesterday for NSTEMI , unstable angina resents back to the emergency department after leaving the hospital AGAINST MEDICAL ADVICE signs upon arrival are within acceptable limits. Patient's well-appearing at the bedside she denies any active symptoms. EKG appears to be unchanged compared to yesterday. Patient will be admitted to [facility]. Pending labs. EKG interpretation: Ventricular rate 85, normal sinus rhythm,. 152, QRS 90, QTC 461. No AR prolongation, no QTC prolongation, no ST or T-wave changes noted. EKG compared to [id number]. Showing no changes. Overall, this EKG is unremarkable - Related Data Home Medications Medication Instructions Recorded Confirmed Aspirin EC [Ecotrin Low Dose] 81 mg PO DAILY 07/30/21 07/30/21 Losartan Potassium 100 mg PO DAILY 07/30/21 07/30/21 hydroCHLOROthiazide [Hydrodiuril] 12.5 mg PO DAILY 07/30/21 07/30/21 Allergies Allergy/AdvReac Type Severity Reaction Status Date / Time No Known Allergies Allergy Verified 07/30/21 10:30 Review of Systems ROS Statement: Those systems with pertinent positive or pertinent negative responses have been documented in the HPI. ROS Other: All systems not noted in ROS Statement are negative. Past Medical History Past Medical History: GERD/Reflux, GI Bleed, Hypertension, Myocardial Infarction (non Q-wave) Additional Past Medical History / Comment(s): Anal fissure, hemorrhoids, lower GI bleed, alcoholism Last Myocardial Infarction Date:: 2020 History of Any Multi-Drug Resistant Organisms: None Reported Past Surgical History: Section, Hysterectomy, Tubal Ligation Additional Past Surgical History / Comment(s): colonoscopy Past Anesthesia/Blood Transfusion Reactions: No Reported Reaction, Motion Sickness Past Psychological History: Anxiety, Depression Smoking Status: Current every day smoker Past Alcohol Use History: None Reported Past Drug Use History: Marijuana - Past Family History Father History Unknown: Yes Additional Family Medical History / Comment(s): Pt does not know her father's medical hx. Mother Family Medical History: Diabetes Mellitus, Renal Disease Additional Family Medical History / Comment(s): Mother from renal failure General Exam Limitations: no limitations Course Vital Signs 07/31/21 19:24 Temperature 98.7 F Pulse Rate 93 Respiratory 17 Rate Blood Pressure 176/120 O2 Sat by Pulse 100 Oximetry Disposition Clinical Impression: Chest pain Disposition: ADMITTED IP TO THIS HOSP Condition: Fair Referrals: Michael Mercado MD [Primary Care Provider] - 1-2 days
[2021-07-31] MEDS ORDERED: SODIUM CHLORIDE 0.9% 1,000 ML IV SCH (20:30)
[2021-07-31 20:34] LABS: Albumin 4.3 g/dL (3.5-5.0); Calcium 9.3 mg/dL (8.4-10.2); Magnesium 1.6 mg/dL (1.6-2.3); Potassium 3.4 mmol/L (3.5-5.1); Total Bilirubin 0.6 mg/dL (0.2-1.3); Total Protein 7.1 g/dL (6.3-8.2)
[2021-07-31 20:35] LABS: INR 0.9 (<1.2); Partial Thromboplastin Time 25.6 sec (22.0-30.0); Prothrombin Time 9.9 sec (9.0-12.0)
[2021-08-01] MEDS ORDERED: NICOTINE 14MG/24HR PATCH TRANSDERM STA (00:43)
[2021-08-01] MEDS ORDERED: ALPRAZolam 0.25 MG TAB PO PRN (00:47)
[2021-08-01] MEDS ORDERED: ZOLPIDEM 10 MG TAB PO PRN (00:47)
--- NOTE | 2021-08-01 01:01 | P.HPIM ---
History of Present Illness H&P Date: 07/31/21 Chief Complaint: chest pain eval 41 year ld female with hypertension patient comes in upon her PCP recommendations to follow through on her chest pain . currently denies any active chest pain , she has not had any episode of chest pains since yesterday back on 07/24/2021 patient went to [facility] , and was treated for hypertensive emergency and NSTEMI, however she did not like the care over there and left AMA then she presented to our facility , as her episodes of chest pain continued, she described them as central sharp chest pain 07/20 radiating to the back and left shoulder, associated with dizziness and SOB. she was admitted at that time , her Trops were unremarkable , however, again she left AMA on the morning of 07/30/2021 she went and saw her PCP, who convinced her to return to the ED to follow up on her cardiac workup as her escort blind has recommended a stress test. this time, she denies any fever, chills, headache, chest pain , SOB. nausea or vomiting, denies any abd pain , changes in her bowel or urinary habits. she claims that these chest pain comes randomly at times while resting doing nothing. todays workup inthe ED, WBC 14.6, K 3.4, trops negative, EKG NSR no acute ST changes Review of Systems Pertinent positives as noted in HPI. All other systems were reviewed and are negative Past Medical History Past Medical History: GERD/Reflux, GI Bleed, Hypertension, Myocardial Infarction (non Q-wave) Additional Past Medical History / Comment(s): Anal fissure, hemorrhoids, lower GI bleed, alcoholism Last Myocardial Infarction Date:: 2020 History of Any Multi-Drug Resistant Organisms: None Reported Past Surgical History: Section, Hysterectomy, Tubal Ligation Additional Past Surgical History / Comment(s): colonoscopy Past Anesthesia/Blood Transfusion Reactions: No Reported Reaction, Motion Sic kness Past Psychological History: Anxiety, Depression Smoking Status: Current every day smoker Past Alcohol Use History: None Reported Past Drug Use History: Marijuana - Past Family History Father History Unknown: Yes Additional Family Medical History / Comment(s): Pt does not know her father's medical hx. Mother Family Medical History: Diabetes Mellitus, Renal Disease Additional Family Medical History / Comment(s): Mother from renal failure Medications and Allergies Home Medications Medication Instructions Recorded Confirmed Type Aspirin EC [Ecotrin Low Dose] 81 mg PO DAILY 07/30/21 07/31/21 History Losartan Potassium 100 mg PO DAILY 07/30/21 07/31/21 History hydroCHLOROthiazide [Hydrodiuril] 12.5 mg PO DAILY 07/30/21 07/31/21 History Allergies Allergy/AdvReac Type Severity Reaction Status Date / Time No Known Allergies Allergy Verified 07/31/21 20:51 Physical Exam Vitals: Vital Signs Temp Pulse Resp BP Pulse Ox 07/31/21 19:24 98.7 F 93 17 176/120 100 Intake and Output 07/31/21 07/31/21 07/31/21 06:59 14:59 22:59 Other: Weight 64.41 kg Constitutional: No acute distress, conversant, pleasant Eyes: Anicteric sclerae, moist conjunctiva, Pupils equal round reactive to light ENMT: NC/AT Oropharynx clear, no erythema, or exudates Neck: Supple, FROM, no masses, or JVD No carotid bruits No thyromegaly Lungs: Clear to auscultation Clear to percussion Normal respiratory effort, no accessory muscle use Cardiovascular: Heart regular in rate and rhythm, No murmurs, gallops, or rubs No peripheral edema Abdominal: Soft Nontender, no guarding, rebound or rigidity Abdomen moving with respiration Normoactive bowel sounds No hepatomegaly, No splenomegaly No palpable mass No abdominal wall hernia noted Skin: Normal temperature, tone, texture, turgor No induration No subcutaneous nodules No rash, lesions No ulcers Extremities: No digital cyanosis No clubbing Pedal pulses intact and symmetrical Radial pulses intact and symmetrical No calf tenderness Psychiatric: Alert and oriented to person, place and time Appropriate affect fair judgement Neuro Muscles Strength 5/5 in all 4 extremities Sensation to light touch grossly present throughout Cranial nerves II-XII grossly intact No focal sensory deficits Lymphatics: no palpable cervical or supraclavicular , or inguinal lymph nodes Results CBC & Chem 7: 07/31/21 20:15 07/31/21 20:15 Labs: Abnormal Lab Results - Last 24 Hours (Table) 07/31/21 07/31/21 Range/Units 20:15 20:15 WBC 14.6 H (3.8-10.6) k/uL Neutrophils # 10.9 H (1.3-7.7) k/uL Sodium 135 L (137-145) mmol/L Potassium 3.4 L (3.5-5.1) mmol/L Creatinine 1.17 H (0.52-1.04) mg/dL Glucose 164 H (74-99) mg/dL Assessment and Plan Assessment: atypical chest pain no acute ST changes trops negative however, following up on recent event of NSTEMI and hypertensive emergency about a week ago , when she left AMA, and yesterday she again left AMA from our facility when cardiology recommended a stress test recent ECHO showed LVEF 55-60% resume losartan and HCTZ trend trops cardio consult physician assistant primary care pain control hypertensive urgency resume home BP meds losartan and HCTz start norvasc 5 mg daily full code DVT PPX mechanical anticipated length of stay < 2 midnights anticipated discharge home
[2021-08-01] MEDS ORDERED: ZOLPIDEM 5 MG TAB PO PRN (01:07)
[2021-08-01] MEDS ORDERED: LORazepam 2 MG/ML INJ IV PRN ×3 (01:07)
[2021-08-01] MEDS ORDERED: cloNIDine HCL 0.2 MG TAB PO PRN (02:48)
[2021-08-01 05:16] VITALS: RESP 16
[2021-08-01 07:04] VITALS: PULSE 81; TEMP 98.2
[2021-08-01 08:31] VITALS: BP 154/93
[2021-08-01] MEDS ORDERED: LOSARTAN 50 MG TAB PO SCH (09:00)
[2021-08-01] MEDS ORDERED: hydroCHLOROthiazide 25 MG TAB PO SCH (09:00)
[2021-08-01] MEDS ORDERED: POTASSIUM CHLORIDE ER 20 MEQ TAB.ER PO SCH (09:00)
[2021-08-01] MEDS ORDERED: hydroCHLOROthiazide 12.5 MG CAP PO SCH (09:00)
[2021-08-01] MEDS ORDERED: ASPIRIN 81 MG PO SCH (09:00)
[2021-08-01] MEDS ORDERED: amLODIPine 5 MG TAB PO SCH (09:00)
[2021-08-01] MEDS ORDERED: DOBUTamine DRIP for NUC MED 500 MG in DEXTROSE/WATER 1 250ML.BAG IV PRN (10:00)
[2021-08-01 10:39] LABS: African American GFR (CKD) 58.6 (60.0-200.0); Anion Gap 6.2 mmol/L (4.00-12.00); BUN/Creat Ratio 7.69 Ratio (12.00-20.00); Calcium 8.8 mg/dL (8.7-10.3); Carbon Dioxide 26.8 mmol/L (21.6-31.8); Non-African American GFR(CKD) 50.6 (60.0-200.0); Potassium 3.1 mmol/L (3.5-5.5)
[2021-08-01 11:27] LABS: Basophils # (A) 0.05 X 10*3/uL (0.00-0.10); Basophils % (A) 0.5 %; Eosinophils # (A) 0.22 X 10*3/uL (0.04-0.35); HCT 33.8 % (37.2-46.3); HGB 11.4 g/dL (12.0-15.0); Lymphocytes # (A) 2.53 X 10*3/uL (0.90-5.00); MCHC 33.7 g/dL (32.0-37.0); MCV 94.9 fL (80.0-97.0); Monocytes # (A) 1.21 X 10*3/uL (0.20-1.00); Neutrophils # (A) 6.97 X 10*3/uL (1.80-7.70); Neutrophils % (A) 63.1 %; Platelet Count 343 X 10*3/uL (140-440); RBC 3.56 X 10*6/uL (4.10-5.20); RDW 15.3 % (11.5-14.5); WBC 11.02 X 10*3/uL (4.50-10.00)
--- NOTE | 2021-08-01 12:48 | P.DS ---
Providers Date of admission: 07/31/21 20:27 Expected date of discharge: 08/01/21 Attending physician: Erlinda Lomax MD Consults: 08/01/21 00:48 Consult Physician Routine Consulting Provider: Attila Osorio Consult Reason/Comments: atypical chest pain Do you want consulting provider notified?: Yes, Notify in am Primary care physician: Michael Mercado Hospital Course: Atypical Chest Pain Hypertensive Urgency Patient admitted for chest pain. Trops were negative, no acute ST changes on EKG. Pt had TII NSTEMI and hypertensive urgency 1 week prior to arrival, but left AMA prior to evaluation with stress test. Recent Echo showd preserved EF, no WMA. Pt underwent stress test today which was negative for reversible ischemia. Pt was started on HCTZ and amlodipine as new meds for HTN and restarted on home losartan. Discharged home with PCP f/u. Assessment: Gen: awake, alert HEENT: normocephalic, atraumatic, good hearing acuity, moist mucous membranes Resp: good air exchange, breathing comfortably with no accessory muscle use CVS: good distal perfusion x 4, GI: soft, NTTP, ND : no SPT, no CVAT, maxwell catheter not present MSK: no pitting edema, no clubbing Neuro: non-focal, moving all extremities Psych: cooperative, euthymic mood Patient Condition at Discharge: Good Plan - Discharge Summary Discharge Rx Participant: No New Discharge Prescriptions: New amLODIPine [Norvasc] 5 mg PO DAILY #30 tab Continue Losartan Potassium 100 mg PO DAILY #30 tab Aspirin EC [Ecotrin Low Dose] 81 mg PO DAILY hydroCHLOROthiazide [Hydrodiuril] 12.5 mg PO DAILY #30 cap Discharge Medication List Aspirin EC [Ecotrin Low Dose] 81 mg PO DAILY 07/30/21 [History] Losartan Potassium 100 mg PO DAILY #30 tab 08/01/21 [Rx] amLODIPine [Norvasc] 5 mg PO DAILY #30 tab 08/01/21 [Rx] hydroCHLOROthiazide [Hydrodiuril] 12.5 mg PO DAILY #30 cap 08/01/21 [Rx] Follow up Appointment(s)/Referral(s): Michael Mercado MD [Primary Care Provider] - 1-2 days Discharge Disposition: HOME SELF-CARE
--- NOTE | 2021-08-01 13:55 | ECHOS ---
STRESS ECHOCARDIOGRAM INDICATIONS: Chest pain BASELINE HEART RATE: 83 BASELINE BLOOD PRESSURE: 138/114 MAXIMUM HEART RATE: 157 MAXIMUM BLOOD PRESSURE: 191/101 85% MPHR: 151 100% MPHR: 178 METS: NA MAXIMUM STAGE REACHED: 2 TOTAL EXERCISE TIME: 7:03 CLINICAL INFORMATION: Baseline rhythm is sinus mechanism, rate of 83, normal axis and intervals. Poor R-wave progression. Evidence of left ventricular hypertrophy. Baseline blood pressure 138/114 mmHg. Patient received infusion of dobutamine per protocol, peak rate 157 beats per minute, which is equal to 88% maximum predicted heart rate. Peak blood pressure 191/101 mmHg. Electrocardiographic monitoring revealed no evidence of diagnostic ischemic ST deviation. FINDINGS: Baseline echocardiogram revealed mild global hypokinesis. At peak infusion there was normal augmentation without any hypokinesis or dyskinesis. CONCLUSION: 1. Normal echocardiographic response to dobutamine infusion. 2. No evidence of stress-induced ischemia on the stress echocardiogram with mild baseline hypokinesis suggestive of mild global nonischemic cardiomyopathy, probably hypertensive heart disease. MMODL / IJN: [id number] /
--- NOTE | 2021-08-01 15:02 | CONS ---
CONSULTATION Mrs. Mace is a 41-year-old female who signed AGAINST MEDICAL ADVICE yesterday, presented to the emergency room yesterday on the advice of Dr. Mercaod. The patient presented initially because of some symptoms of chest discomfort. She had a prior admission to [facility]. At that time her troponin was mildly elevated, but the patient signed out AMA. She presented again to [facility]. Her troponins were unremarkable. She was scheduled to undergo a stress echocardiogram but elected to leave the hospital yesterday. She did not have any further chest pain. Her breathing is stable. She denies any dizziness or palpitation. She had some lightheadedness before. She has no PND or orthopnea. She is quite anxious. She has a history of chronic alcohol and marijuana use. She has a history of longstanding hypertension. She has no PND, orthopnea or peripheral edema. Her coronary risk factors are remarkable for hypertension. She is nondiabetic. Her lipid profile is not available. MEDICATION: Her medication as an outpatient includes losartan 100 mg daily, hydrochlorothiazide 12.5 mg daily and aspirin once a day. REVIEW OF SYSTEMS: RESPIRATORY SYSTEM: She has no documented history of asthma, emphysema or bronchitis. GI SYSTEM: No recent GI bleeding. No peptic ulcer disease. SYSTEM: No dysuria or hematuria. NERVOUS SYSTEM: No history of seizure. PHYSICAL EXAMINATION: She is a 41-year-old female, alert, oriented, in no apparent distress. Blood pressure is running in the 120s to 170s with a heart rate in the 80s. HEAD: Normocephalic. EYES: Sclerae anicteric. NECK: Good carotid upstroke. No bruit. No jugular venous distention. LUNGS: Clear to auscultation. HEART: Regular rate and rhythm. S1, S2. No S3, with systolic murmur heard at the base. No diastolic murmur. No rub. ABDOMEN: Soft, nontender. Positive bowel sounds. No organomegaly. EXTREMITIES: No edema. Intact distal pulses. LAB DATA: Lab data revealed BUN and creatinine of 11 and 1.17, potassium 3.4. Troponin 0.014. Hemoglobin of 13.2. EKG revealed a sinus mechanism, normal axis and intervals, left ventricular hypertrophy with nonspecific ST-T wave changes. She had an echocardiogram performed on July 30 that showed an ejection fraction of 50% to 55% with mild aortic, mitral and tricuspid regurgitation. IMPRESSION: 1. Prior episode of chest discomfort with no evidence of acute myocardial injury. 2. Hypertension. 3. Chronic marijuana use. 4. Chronic alcohol use. RECOMMENDATIONS: I would increase her hydrochlorothiazide to 25 mg daily. I would recommend to proceed with stress echocardiogram to evaluate her findings and guide her treatment. Depending on the results of testing, further recommendations will be made. Thank you for this consult. Will follow with you. TANO / IJN: [id number] /
[2021-08-01] MEDS ORDERED: THIAMINE 100 MG TAB PO SCH (17:30)
== END 2021-08-01 14:00 | disposition home or self-care (01) ==
LOC: EC 19:15 → 6NMEDSUR 20:27
PROVIDERS: ADMIT Internal Medicine; ATTEND Internal Medicine
DX: R07.89 Other chest pain (principal); I16.0 Hypertensive urgency; R00.2 Palpitations; Z79.82 Long term (current) use of aspirin; Z79.899 Other long term (current) drug therapy; F32.9 Major depressive disorder, single episode, unspecified; F41.9 Anxiety disorder, unspecified; F17.200 Nicotine dependence, unspecified, uncomplicated; I10 Essential (primary) hypertension; I25.2 Old myocardial infarction; K21.9 Gastro-esophageal reflux disease without esophagitis; F12.90 Cannabis use, unspecified, uncomplicated; Z83.3 Family history of diabetes mellitus; Z90.710 Acquired absence of both cervix and uterus
CPT/HCPCS: 96374; 99285; 36415; 94760; 93005; 93351; 80053; 80048; 83735; 84484; 85025 ×2; 85610; 85730; G0378 ×2; S4990; J2060; J1250

== ENCOUNTER 2022-09-02 07:15 | Emergency (ER) | payer BC ==
[2022-09-02 07:23] VITALS: TEMP 98.1
[2022-09-02] MEDS ORDERED: hydrALAZINE HCL 20 MG/ML 1 ML VIAL IVP STA (07:34)
--- NOTE | 2022-09-02 07:36 | ED ---
General Adult HPI - General Chief complaint: Arrhythmia/Palpitations Stated complaint: Afib, Shortness of Breath, Hypertension Time Seen by Provider: 09/02/22 07:25 Source: patient, RN notes reviewed, old records reviewed Mode of arrival: ambulatory Limitations: no limitations - History of Present Illness Initial comments: This is a 42-year-old female presents emergency department with past medical history significant for high blood pressure high cholesterol and smoking. Patient states yesterday she didn't take her blood pressure meds and she noticed her blood pressure was elevated and she was having occasional palpitations and became nauseated. Patient states she woke up this morning felt the same way to get to take her blood pressure medicines today. Patient denied any chest pain or pressure. Patient denies shortness of breath. Patient states she felt the next repeat occasionally tinged because she was still nauseous she thought she s hould come in and be evaluated. Patient states she has had a stress test about a year ago and it was normal. Patient states she also has had echoes. Patient also states she smokes marijuana. Patient denies any recent fever chills or cough. Patient denies any back pain. Patient denies any abdominal pain. Patient denies any lightheadedness or dizziness. - Related Data Home Medications Medication Instructions Recorded Confirmed Aspirin EC [Ecotrin Low Dose] 81 mg PO DAILY 07/30/21 07/31/21 Previous Rx's Medication Instructions Recorded Losartan Potassium 100 mg PO DAILY #30 tab 08/01/21 amLODIPine [Norvasc] 5 mg PO DAILY #30 tab 08/01/21 hydroCHLOROthiazide [Hydrodiuril] 12.5 mg PO DAILY #30 cap 08/01/21 Potassium Chloride ER [K-Dur 10] 10 meq PO DAILY #5 tab 09/02/22 Allergies Allergy/AdvReac Type Severity Reaction Status Date / Time No Known Allergies Allergy Verified 09/02/22 07:23 Review of Systems ROS Statement: Those systems with pertinent positive or pertinent negative responses have been documented in the HPI. ROS Other: All systems not noted in ROS Statement are negative. Past Medical History Past Medical History: Atrial Fibrillation, GERD/Reflux, GI Bleed, Hypertension, Myocardial Infarction (non Q-wave) Additional Past Medical History / Comment(s): Anal fissure, hemorrhoids, lower GI bleed, alcoholism Last Myocardial Infarction Date:: 2020 History of Any Multi-Drug Resistant Organisms: None Reported Past Surgical History: Section, Hysterectomy, Tubal Ligation Additional Past Surgical History / Comment(s): colonoscopy Past Anesthesia/Blood Transfusion Reactions: No Reported Reaction, Motion Sickness Past Psychological History: Anxiety, Depression Smoking Status: Current every day smoker Past Alcohol Use History: Occasional Past Drug Use History: Marijuana - Past Family History Father History Unknown: Yes Additional Family Medical History / Comment(s): Pt does not know her father's medical hx. Mother Family Medical History: Diabetes Mellitus, Renal Disease Additional Family Medical History / Comment(s): Mother from renal failure General Exam - General Exam Comments Initial Comments: GENERAL: Patient is well-developed and well-nourished. Patient is nontoxic and well- hydrated and is in no acute distress. ENT: Neck is soft and supple. No significant lymphadenopathy is noted. Oropharynx is clear. Moist mucous membranes. Neck has full range of motion without eliciting any pain. EYES: The sclera were anicteric and conjunctiva were pink and moist. Extraocular movements were intact and pupils were equal round and reactive to light. Eyelids were unremarkable. PULMONARY: Unlabored respirations. Good breath sounds bilaterally. No audible rales rhonchi or wheezing was noted. CARDIOVASCULAR: There is a regular rate and rhythm without any murmurs gallops or rubs. ABDOMEN: Soft and nontender with normal bowel sounds. SKIN: Skin is clear with no lesions or rashes and otherwise unremarkable. NEUROLOGIC: Patient is alert and oriented x3. Cranial nerves II through XII are grossly intact. Motor and sensory are also intact. Normal speech, volume and content. Symmetrical smile. MUSCULOSKELETAL: Normal extremities with adequate strength and full range of motion. No lower extremity swelling or edema. No calf tenderness. LYMPHATICS: No significant lymphadenopathy is noted PSYCHIATRIC: Normal psychiatric evaluation. Limitations: no limitations Course Vital Signs 09/02/22 07:21 Temperature 98.1 F Pulse Rate 89 Respiratory 20 Rate Blood Pressure 161/102 O2 Sat by Pulse 100 Oximetry Medical Decision Making - Medical Decision Making EKG shows sinus rhythm at 77 bpm NJ interval 172 QRS is 110 QT interval 395 QTC is 427. Patient's EKG shows no ST segment elevation or depression. Patient's chest x-ray showed no acute abnormality. Knee. Patient had no palpitations while in the emergency department. Patient's potassium was also given the potassium in the emergency department. Patient will follow-up with the primary medical care doctor for her potassium level as well as her kidney function which was very slightly off. - Lab Data Result diagrams: 09/02/22 07:38 09/02/22 07:38 Lab Results 09/02/22 09/02/22 09/02/22 Range/Units 07:38 07:38 07:38 WBC 11.9 H (3.8-10.6) k/uL RBC 4.19 (3.80-5.40) m/uL Hgb 13.6 (11.4-16.0) gm/dL Hct 39.3 (34.0-46.0) % MCV 93.8 (80.0-100.0) fL MCH 32.4 (25.0-35.0) pg MCHC 34.5 (31.0-37.0) g/dL RDW 14.0 (11.5-15.5) % Plt Count 521 H (150-450) k/uL MPV 7.7 Neutrophils % 79 % Lymphocytes % 13 % Monocytes % 5 % Eosinophils % 2 % Basophils % 0 % Neutrophils # 9.3 H (1.3-7.7) k/uL Lymphocytes # 1.5 (1.0-4.8) k/uL Monocytes # 0.6 (0-1.0) k/uL Eosinophils # 0.3 (0-0.7) k/uL Basophils # 0.0 (0-0.2) k/uL PT 10.7 (9.0-12.0) sec INR 1.0 (<1.2) APTT 25.7 (22.0-30.0) sec Sodium (137-145) mmol/L Potassium (3.5-5.1) mmol/L Chloride (98-107) mmol/L Carbon Dioxide (22-30) mmol/L Anion Gap mmol/L BUN (7-17) mg/dL Creatinine (0.52-1.04) mg/dL Est GFR (CKD-EPI)AfAm (>60 ml/min/1.73 sqM) Est GFR (CKD-EPI)NonAf (>60 ml/min/1.73 sqM) Glucose (74-99) mg/dL Calcium (8.4-10.2) mg/dL Magnesium (1.6-2.3) mg/dL Total Bilirubin (0.2-1.3) mg/dL AST (14-36) U/L ALT (4-34) U/L Alkaline Phosphatase (38-126) U/L Troponin I (0.000-0.034) ng/mL Total Protein (6.3-8.2) g/dL Albumin (3.5-5.0) g/dL TSH (0.465-4.680) mIU/L Urine Opiates Screen Not Detected (NotDetected) Ur Oxycodone Screen Not Detected (NotDetected) Urine Methadone Screen Not Detected (NotDetected) Ur Propoxyphene Screen Not Detected (NotDetected) Ur Barbiturates Screen Not Detected (NotDetected) U Tricyclic Antidepress Not Detected (NotDetected) Ur Phencyclidine Scrn Not Detected (NotDetected) Ur Amphetamines Screen Not Detected (NotDetected) U Methamphetamines Scrn Not Detected (NotDetected) U Benzodiazepines Scrn Not Detected (NotDetected) Urine Cocaine Screen Not Detected (NotDetected) U Marijuana (THC) Screen Detected H (NotDetected) 09/02/22 09/02/22 Range/Units 07:38 07:38 WBC (3.8-10.6) k/uL RBC (3.80-5.40) m/uL Hgb (11.4-16.0) gm/dL Hct (34.0-46.0) % MCV (80.0-100.0) fL MCH (25.0-35.0) pg MCHC (31.0-37.0) g/dL RDW (11.5-15.5) % Plt Count (150-450) k/uL MPV Neutrophils % % Lymphocytes % % Monocytes % % Eosinophils % % Basophils % % Neutrophils # (1.3-7.7) k/uL Lymphocytes # (1.0-4.8) k/uL Monocytes # (0-1.0) k/uL Eosinophils # (0-0.7) k/uL Basophils # (0-0.2) k/uL PT (9.0-12.0) sec INR (<1.2) APTT (22.0-30.0) sec Sodium 142 (137-145) mmol/L Potassium 3.2 L (3.5-5.1) mmol/L Chloride 105 (98-107) mmol/L Carbon Dioxide 24 (22-30) mmol/L Anion Gap 13 mmol/L BUN 12 (7-17) mg/dL Creatinine 1.08 H (0.52-1.04) mg/dL Est GFR (CKD-EPI)AfAm 73 (>60 ml/min/1.73 sqM) Est GFR (CKD-EPI)NonAf 63 (>60 ml/min/1.73 sqM) Glucose 125 H (74-99) mg/dL Calcium 8.6 (8.4-10.2) mg/dL Magnesium 1.6 (1.6-2.3) mg/dL Total Bilirubin 0.4 (0.2-1.3) mg/dL AST 32 (14-36) U/L ALT 16 (4-34) U/L Alkaline Phosphatase 56 (38-126) U/L Troponin I 0.014 (0.000-0.034) ng/mL Total Protein 7.6 (6.3-8.2) g/dL Albumin 4.7 (3.5-5.0) g/dL TSH 1.590 (0.465-4.680) mIU/L Urine Opiates Screen (NotDetected) Ur Oxycodone Screen (NotDetected) Urine Methadone Screen (NotDetected) Ur Propoxyphene Screen (NotDetected) Ur Barbiturates Screen (NotDetected) U Tricyclic Antidepress (NotDetected) Ur Phencyclidine Scrn (NotDetected) Ur Amphetamines Screen (NotDetected) U Methamphetamines Scrn (NotDetected) U Benzodiazepines Scrn (NotDetected) Urine Cocaine Screen (NotDetected) U Marijuana (THC) Screen (NotDetected) Disposition Clinical Impression: Palpitations, Hypokalemia Disposition: HOME SELF-CARE Condition: Good Instructions (If sedation given, give patient instructions): Heart Palpitations (ED) Prescriptions: Potassium Chloride ER [K-Dur 10] 10 meq PO DAILY #5 tab Is patient prescribed a controlled substance at d/c from ED?: No Referrals: None,Stated [Primary Care Provider] - 1-2 days Time of Disposition: 09:19
[2022-09-02 08:23] LABS: Basophils % (A) 0 %; Eosinophils # (A) 0.3 k/uL (0-0.7); Eosinophils % (A) 2 %; HCT 39.3 % (34.0-46.0); HGB 13.6 gm/dL (11.4-16.0); Lymphocytes # (A) 1.5 k/uL (1.0-4.8); Lymphocytes % (A) 13 %; MCH 32.4 pg (25.0-35.0); MCHC 34.5 g/dL (31.0-37.0); MCV 93.8 fL (80.0-100.0); Mean Platelet Volume 7.7; Monocytes # (A) 0.6 k/uL (0-1.0); Monocytes % (A) 5 %; Neutrophils # (A) 9.3 k/uL (1.3-7.7); Neutrophils % (A) 79 %; Platelet Count 521 k/uL (150-450); RBC 4.19 m/uL (3.80-5.40); WBC 11.9 k/uL (3.8-10.6)
[2022-09-02 08:38] LABS: Albumin 4.7 g/dL (3.5-5.0); Calcium 8.6 mg/dL (8.4-10.2); Magnesium 1.6 mg/dL (1.6-2.3); Potassium 3.2 mmol/L (3.5-5.1); Total Bilirubin 0.4 mg/dL (0.2-1.3); Total Protein 7.6 g/dL (6.3-8.2)
[2022-09-02 08:43] LABS: Partial Thromboplastin Time 25.7 sec (22.0-30.0); Prothrombin Time 10.7 sec (9.0-12.0)
--- NOTE | 2022-09-02 08:44 | XR ---
EXAMINATION TYPE: XR chest 2V DATE OF EXAM: 09/02/2022 COMPARISON: Chest x-ray 07/30/2021 HISTORY: Palpitations, dysrhythmia TECHNIQUE: Frontal and lateral views of the chest are obtained. FINDINGS: There is no focal air space opacity, pleural effusion, or pneumothorax seen. The cardiac silhouette size appears enlarged although there may be a pectus deformity. There is chronic elevation of the right hemidiaphragm. The osseous structures are intact. IMPRESSION: Suspect cardiomegaly.
[2022-09-02 09:11] LABS: Amphetamine Screen,Urine Not Detected (NotDetected); Barbiturate Screen,Urine Not Detected (NotDetected); Benzodiazepines Screen,Urine Not Detected (NotDetected); Cocaine Screen,Urine Not Detected (NotDetected); Methadone Screen, Urine Not Detected (NotDetected); Opiate Screen,Urine Not Detected (NotDetected); Oxycodone Screen, Urine Not Detected (NotDetected); Phencyclidine Screen,Urine Not Detected (NotDetected); Tricyclic Antidepressant,Urine Not Detected (NotDetected); Urn Cannabinoid Scrn Detected (NotDetected)
[2022-09-02] MEDS ORDERED: POTASSIUM CHLORIDE ER 20 MEQ TAB.ER PO STA (09:12)
[2022-09-02 10:48] VITALS: BP 153/103; PULSE 85; RESP 16
== END 2022-09-02 09:45 | disposition home or self-care (01) ==
LOC: EC 07:15
DX: R00.2 Palpitations (principal); E87.6 Hypokalemia; I48.91 Unspecified atrial fibrillation; K21.9 Gastro-esophageal reflux disease without esophagitis; I21.9 Acute myocardial infarction, unspecified; F17.200 Nicotine dependence, unspecified, uncomplicated; F12.90 Cannabis use, unspecified, uncomplicated; Z79.82 Long term (current) use of aspirin
CPT/HCPCS: 36415; 93005; 80053; 83735; 84443; 84484; 85025; 85610; 85730; 80306; 71046; 99285; 96374; J0360

== ENCOUNTER 2023-05-03 12:53 | Emergency (ER) | payer BC ==
--- NOTE | 2023-05-03 13:00 | ED ---
General Adult HPI - General Chief complaint: Chest Pain Stated complaint: Heart Palpitations,EDUARDO Time Seen by Provider: 05/03/23 12:59 Source: patient Mode of arrival: wheelchair Limitations: no limitations - History of Present Illness Initial comments: Patient presents to the ED with her for evaluation. Patient states that she has had central chest pain since she awoke about 7-8 hours ago. Patient also states that she has had right lumbar back pain radiating to her right flank region for the past 2 days. Patient admits to having dyspnea and heart palpitations, which she describes as "fluttering", since this morning as well. Patient states that her right lumbar back pain is worse with changes in position. Patient denies trauma or injury, fever or chills, headache, focal numbness/weakness/neuro deficit, neck/arm/jaw/upper back pain, pleuritic pain, cough or cold symptoms, dizziness, syncope, nausea/vomiting/diaphoresis, diarrhea/constipation, bloody or melanotic stool, dysuria/hematuria/urinary frequency/urinary symptoms, decreased urine output, incontinence or urinary retention, leg or calf swelling or pain, or any other symptoms or complaints. - Related Data Home Medications Medication Instructions Recorded Confirmed Aspirin EC [Ecotrin Low Dose] 81 mg PO DAILY 07/30/21 05/03/23 Folic Acid 1 mg PO DAILY 05/03/23 05/03/23 Potassium Chloride ER [K-Dur 20] 20 meq PO DAILY 05/03/23 05/03/23 Previous Rx's Medication Instructions Recorded Losartan Potassium 100 mg PO DAILY #30 tab 08/01/21 hydroCHLOROthiazide [Hydrodiuril] 12.5 mg PO DAILY #30 cap 08/01/21 Potassium Chloride ER [K-Dur 20] 20 meq PO DAILY #7 tab 05/03/23 Allergies Allergy/AdvReac Type Severity Reaction Status Date / Time No Known Allergies Allergy Verified 05/03/23 13:48 Review of Systems ROS Statement: Those systems with pertinent positive or pertinent negative responses have been documented in the HPI. ROS Other: All systems not noted in ROS Statement are negative. Past Medical History Past Medical History: Atrial Fibrillation, GERD/Reflux, GI Bleed, Hypertension, Myocardial Infarction (non Q-wave) Additional Past Medical History / Comment(s): Anal fissure, hemorrhoids, lower GI bleed, alcoholism Last Myocardial Infarction Date:: 2020 History of Any Multi-Drug Resistant Organisms: None Reported Past Surgical History: Section, Hysterectomy, Tubal Ligation Additional Past Surgical History / Comment(s): colonoscopy Past Anesthesia/Blood Transfusion Reactions: No Reported Reaction, Motion Sickness Past Psychological History: Anxiety, Depression Smoking Status: Current every day smoker Past Alcohol Use History: Occasional Past Drug Use History: Marijuana - Past Family History Father History Unknown: Yes Additional Family Medical History / Comment(s): Pt does not know her father's medical hx. Mother Family Medical History: Diabetes Mellitus, Renal Disease Additional Family Medical History / Comment(s): Mother from renal failure General Exam Limitations: no limitations General appearance: alert Head exam: Present: normocephalic Eye exam: Present: normal appearance ENT exam: Present: mucous membranes moist Neck exam: Present: other (Trachea is in midline) Respiratory exam: Present: normal lung sounds bilaterally. Absent: respiratory distress, wheezes, rales, rhonchi, stridor, chest wall tenderness Cardiovascular Exam: Present: regular rate, normal rhythm, normal heart sounds, other (Normal radial pulses bilaterally) GI/Abdominal exam: Present: soft. Absent: distended, tenderness, guarding Extremities exam: Present: full ROM, other (Negative Homans sign bilaterally). Absent: tenderness, pedal edema, calf tenderness Back exam: Present: normal inspection, other (Right lumbar back tenderness; no midline spinal tenderness). Absent: CVA tenderness (R), CVA tenderness (L) Neurological exam: Present: alert, oriented X3, other (No evidence of lower extremity neurological deficit or saddle anesthesia). Absent: motor sensory deficit Psychiatric exam: Present: anxious Skin exam: Present: warm, dry, intact, normal color Course Vital Signs 05/03/23 05/03/23 05/03/23 12:56 13:38 16:00 Temperature 98.3 F Pulse Rate 95 86 90 Respiratory 22 18 18 Rate Blood Pressure 175/101 184/113 151/94 O2 Sat by Pulse 100 100 99 Oximetry - Reevaluation(s) Reevaluation #1: 05/03/23 16:46 Patient appears more comfortable and less anxious now. Patient remains alert and breathing comfortably with a normal room air oxygen saturation. Patient states that her chest pain and back pain have improved with ED treatment. Patient denies development of any new symptoms while in the ED. Patient is aware of her test results, and she feels comfortable being discharged home with her at this time. She was counseled about chest pain, palpitations, lumbar back pain and hypokalemia. She was clearly explained return and follow- up instructions, and she feels comfortable with this plan. Patient states that she has a follow-up appointment scheduled to see Dr. Wolf in 4 days. EKG Findings - EKG Comments: EKG Findings:: ED physician interpretation (interpreted by me): Normal sinus rhythm, no ectopy, ventricular rate of 89 bpm, normal SC and QRS intervals, no rmal QT interval, borderline leftward axis, nonspecific T-wave abnormality, no ST elevation Medical Decision Making - Medical Decision Making Was pt. sent in by a medical professional or institution (, PA, DIRECTOR OF SEARCH ENGINE OPTIMIZATION, urgent care, hospital, or long term...) When possible be specific @ -No Did you speak to anyone other than the patient for history (EMS, parent, family, police, friend...)? What history was obtained from this source @ -No Did you review nursing and triage notes (agree or disagree)? Why? @ -I reviewed and agree with nursing and triage notes Were old charts reviewed (outside hosp., previous admission, EMS record, old EKG, old radiological studies, urgent care reports/EKG's, long term records)? Report findings @ -No old charts were reviewed Differential Diagnosis (chest pain, altered mental status, abdominal pain women, abdominal pain men, vaginal bleeding, weakness, fever, dyspnea, syncope, headache, dizziness, GI bleed, back pain, seizure, CVA, palpatations, mental health, musculoskeletal)? @ -Chest pain, ACS/MN, chest wall pain, pulmonary edema, aortic dissection, pleural effusion, pneumothorax, pleurisy, GERD, muscle strain, anxiety, back pain, flank pain, musculoskeletal, DDD, DJD, ureteral stone, renal stone, UTI, pyelonephritis, electrolyte abnormality EKG interpreted by me (3pts min.). @ -As above X-rays interpreted by me (1pt min.). @ -Patient's chest x-ray was reviewed myself and shows no acute abnormality. I agree with the radiologist's interpretation as above. CT interpreted by me (1pt min.). @ -Patient's noncontrast CT abdomen/pelvis was reviewed myself and shows no evidence of obstructing ureteral stone. I agree with the radiologist's interpretation as above. U/S interpreted by me (1pt. min.). @ -None done What testing was considered but not performed or refused? (CT, X-rays, U/S, labs)? Why? @ -None What meds were considered but not given or refused? Why? @ -None Did you discuss the management of the patient with other professionals (florentin lawrence i.e. , PA, DIRECTOR OF SEARCH ENGINE OPTIMIZATION, lab, RT, psych nurse, social media sr strategy manager, fisher trot line, teacher, ordnance corps officer, heel caser)? Give summary @ -No Was smoking cessation discussed for >3mins.? @ -No Was critical care preformed (if so, how long)? @ -No Were there social determinants of health that impacted care today? How? (Homelessness, low income, unemployed, alcoholism, drug addiction, transportation, low edu. Level, literacy, decrease access to med. care, long-term, rehab)? @ -No Was there de-escalation of care discussed even if they declined (Discuss DNR or withdrawal of care, Hospice)? DNR status @ -No What co-morbidities impacted this encounter? (DM, HTN, Smoking, COPD, CAD, Cancer, CVA, ARF, Chemo, Hep., AIDS, mental health diagnosis, sleep apnea, morbid obesity)? @ -None Was patient admitted / discharged? Hospital course, mention meds given and route, prescriptions, significant lab abnormalities, going to OR and other pertinent info. @ -Patient's chest pain has improved while in the ED. Patient has had 2 negative troponins drawn about 2 hours apart while in the ED. Patient's d-dimer is negative. Patient's UA is negative for findings of UTI. Patient's CT abdomen/pelvis shows no findings to explain the patient's right lumbar/flank pain. Patient reports that her symptoms have improved with ED treatment. I do not suspect an emergent medical condition at this time. Will discharge patient home with her at this time. Patient feels comfortable with this plan. Undiagnosed new problem with uncertain prognosis? @ -No Drug Therapy requiring intensive monitoring for toxicity (Heparin, Nitro, Insulin, Cardizem)? @ -No Were any procedures done? @ -No Diagnosis/symptom? @ -Chest pain Acute, or Chronic, or Acute on Chronic? @ -Acute Uncomplicated (without systemic symptoms) or Complicated (systemic symptoms)? @ -default Side effects of treatment? @ -No Exacerbation, Progression, or Severe Exacerbation? @ -No Poses a threat to life or bodily function? How? (Chest pain, USA, MN, pneumonia, PE, COPD, DKA, ARF, appy, cholecystitis, CVA, Diverticulitis, Homicidal, Suicidal, threat to staff... and all critical care pts) @ -No Diagnosis/symptom? @ -Palpitations Acute, or Chronic, or Acute on Chronic? @ -Acute Uncomplicated (without systemic symptoms) or Complicated (systemic symptoms)? @ -default Side effects of treatment? @ -none Exacerbation, Progression, or Severe Exacerbation] @ -no Poses a threat to life or bodily function? @ -no Diagnosis/symptom? @ -Right lumbar back pain Acute, or Chronic, or Acute on Chronic? @ -Acute Uncomplicated (without systemic symptoms) or Complicated (systemic symptoms)? @ -default Side effects of treatment? @ -none Exacerbation, Progression, or Severe Exacerbation] @ -no Poses a threat to life or bodily function? @ -no Diagnosis/symptom? @ -Hypokalemia Acute, or Chronic, or Acute on Chronic? @ -Chronic Uncomplicated (without systemic symptoms) or Complicated (systemic symptoms)? @ -default Side effects of treatment? @ -none Exacerbation, Progression, or Severe Exacerbation] @ -no Poses a threat to life or bodily function? @ -no - Lab Data Result diagrams: 05/03/23 13:24 05/03/23 13:24 Lab Results 05/03/23 05/03/23 05/03/23 Range/Units 13:24 13:24 13:24 WBC 15.9 H (3.8-10.6) k/uL RBC 4.02 (3.80-5.40) m/uL Hgb 13.0 (11.4-16.0) gm/dL Hct 38.8 (34.0-46.0) % MCV 96.6 (80.0-100.0) fL MCH 32.3 (25.0-35.0) pg MCHC 33.4 (31.0-37.0) g/dL RDW 14.1 (11.5-15.5) % Plt Count 454 H (150-450) k/uL MPV 7.7 Neutrophils % 80 % Lymphocytes % 12 % Monocytes % 5 % Eosinophils % 3 % Basophils % 0 % Neutrophils # 12.7 H (1.3-7.7) k/uL Lymphocytes # 1.9 (1.0-4.8) k/uL Monocytes # 0.8 (0-1.0) k/uL Eosinophils # 0.4 (0-0.7) k/uL Basophils # 0.1 (0-0.2) k/uL PT 10.0 (9.0-12.0) sec INR 0.9 (<1.2) APTT 27.8 (22.0-30.0) sec D-Dimer 0.35 (<0.60) mg/L FEU Sodium 141 (137-145) mmol/L Potassium 2.8 L (3.5-5.1) mmol/L Chloride 101 (98-107) mmol/L Carbon Dioxide 28 (22-30) mmol/L Anion Gap 12 mmol/L BUN 10 (7-17) mg/dL Creatinine 1.19 H (0.52-1.04) mg/dL Est GFR (CKD-EPI)AfAm 64 (>60 ml/min/1.73 sqM) Est GFR (CKD-EPI)NonAf 56 (>60 ml/min/1.73 sqM) Glucose 146 H (74-99) mg/dL Calcium 9.1 (8.4-10.2) mg/dL Magnesium 1.6 (1.6-2.3) mg/dL Total Bilirubin 0.6 (0.2-1.3) mg/dL AST 21 (14-36) U/L ALT 13 (4-34) U/L Alkaline Phosphatase 80 (38-126) U/L Troponin I (0.000-0.034) ng/mL NT-Pro-B Natriuret Pep pg/mL Total Protein 8.1 (6.3-8.2) g/dL Albumin 4.5 (3.5-5.0) g/dL Urine Color Urine Appearance (Clear) Urine pH (5.0-8.0) Ur Specific [place] (1.001-1.035) Urine Protein (Negative) Urine Glucose (UA) (Negative) Urine Ketones (Negative) Urine Blood (Negative) Urine Nitrite (Negative) Urine Bilirubin (Negative) Urine Urobilinogen (<2.0) mg/dL Ur Leukocyte Esterase (Negative) Urine RBC (0-5) /hpf Urine WBC (0-5) /hpf Ur Squamous Epith Cells (0-4) /hpf Urine Mucus (None) /hpf Urine Opiates Screen (NotDetected) Ur Oxycodone Screen (NotDetected) Urine Methadone Screen (NotDetected) Ur Propoxyphene Screen (NotDetected) Ur Barbiturates Screen (NotDetected) U Tricyclic Antidepress (NotDetected) Ur Phencyclidine Scrn (NotDetected) Ur Amphetamines Screen (NotDetected) U Methamphetamines Scrn (NotDetected) U Benzodiazepines Scrn (NotDetected) Urine Cocaine Screen (NotDetected) U Marijuana (THC) Screen (NotDetected) 05/03/23 05/03/23 05/03/23 Range/Units 13:24 13:24 13:24 WBC (3.8-10.6) k/uL RBC (3.80-5.40) m/uL Hgb (11.4-16.0) gm/dL Hct (34.0-46.0) % MCV (80.0-100.0) fL MCH (25.0-35.0) pg MCHC (31.0-37.0) g/dL RDW (11.5-15.5) % Plt Count (150-450) k/uL MPV Neutrophils % % Lymphocytes % % Monocytes % % Eosinophils % % Basophils % % Neutrophils # (1.3-7.7) k/uL Lymphocytes # (1.0-4.8) k/uL Monocytes # (0-1.0) k/uL Eosinophils # (0-0.7) k/uL Basophils # (0-0.2) k/uL PT (9.0-12.0) sec INR (<1.2) APTT (22.0-30.0) sec D-Dimer (<0.60) mg/L FEU Sodium (137-145) mmol/L Potassium (3.5-5.1) mmol/L Chloride (98-107) mmol/L Carbon Dioxide (22-30) mmol/L Anion Gap mmol/L BUN (7-17) mg/dL Creatinine (0.52-1.04) mg/dL Est GFR (CKD-EPI)AfAm (>60 ml/min/1.73 sqM) Est GFR (CKD-EPI)NonAf (>60 ml/min/1.73 sqM) Glucose (74-99) mg/dL Calcium (8.4-10.2) mg/dL Magnesium (1.6-2.3) mg/dL Total Bilirubin (0.2-1.3) mg/dL AST (14-36) U/L ALT (4-34) U/L Alkaline Phosphatase (38-126) U/L Troponin I 0.026 (0.000-0.034) ng/mL NT-Pro-B Natriuret Pep 1000 pg/mL Total Protein (6.3-8.2) g/dL Albumin (3.5-5.0) g/dL Urine Color Yellow Urine Appearance Cloudy H (Clear) Urine pH 6.0 (5.0-8.0) Ur Specific [place] 1.017 (1.001-1.035) Urine Protein 2+ H (Negative) Urine Glucose (UA) Negative (Negative) Urine Ketones Negative (Negative) Urine Blood Negative (Negative) Urine Nitrite Negative (Negative) Urine Bilirubin Negative (Negative) Urine Urobilinogen 2.0 (<2.0) mg/dL Ur Leukocyte Esterase Negative (Negative) Urine RBC <1 (0-5) /hpf Urine WBC 2 (0-5) /hpf Ur Squamous Epith Cells 6 H (0-4) /hpf Urine Mucus Rare H (None) /hpf Urine Opiates Screen Detected H (NotDetected) Ur Oxycodone Screen Not Detected (NotDetected) Urine Methadone Screen Not Detected (NotDetected) Ur Propoxyphene Screen Not Detected (NotDetected) Ur Barbiturates Screen Not Detected (NotDetected) U Tricyclic Antidepress Not Detected (NotDetected) Ur Phencyclidine Scrn Not Detected (NotDetected) Ur Amphetamines Screen Not Detected (NotDetected) U Methamphetamines Scrn Not Detected (NotDetected) U Benzodiazepines Scrn Not Detected (NotDetected) Urine Cocaine Screen Not Detected (NotDetected) U Marijuana (THC) Screen Detected H (NotDetected) 05/03/23 Range/Units 15:54 WBC (3.8-10.6) k/uL RBC (3.80-5.40) m/uL Hgb (11.4-16.0) gm/dL Hct (34.0-46.0) % MCV (80.0-100.0) fL MCH (25.0-35.0) pg MCHC (31.0-37.0) g/dL RDW (11.5-15.5) % Plt Count (150-450) k/uL MPV Neutrophils % % Lymphocytes % % Monocytes % % Eosinophils % % Basophils % % Neutrophils # (1.3-7.7) k/uL Lymphocytes # (1.0-4.8) k/uL Monocytes # (0-1.0) k/uL Eosinophils # (0-0.7) k/uL Basophils # (0-0.2) k/uL PT (9.0-12.0) sec INR (<1.2) APTT (22.0-30.0) sec D-Dimer (<0.60) mg/L FEU Sodium (137-145) mmol/L Potassium (3.5-5.1) mmol/L Chloride (98-107) mmol/L Carbon Dioxide (22-30) mmol/L Anion Gap mmol/L BUN (7-17) mg/dL Creatinine (0.52-1.04) mg/dL Est GFR (CKD-EPI)AfAm (>60 ml/min/1.73 sqM) Est GFR (CKD-EPI)NonAf (>60 ml/min/1.73 sqM) Glucose (74-99) mg/dL Calcium (8.4-10.2) mg/dL Magnesium (1.6-2.3) mg/dL Total Bilirubin (0.2-1.3) mg/dL AST (14-36) U/L ALT (4-34) U/L Alkaline Phosphatase (38-126) U/L Troponin I 0.023 (0.000-0.034) ng/mL NT-Pro-B Natriuret Pep pg/mL Total Protein (6.3-8.2) g/dL Albumin (3.5-5.0) g/dL Urine Color Urine Appearance (Clear) Urine pH (5.0-8.0) Ur Specific [place] (1.001-1.035) Urine Protein (Negative) Urine Glucose (UA) (Negative) Urine Ketones (Negative) Urine Blood (Negative) Urine Nitrite (Negative) Urine Bilirubin (Negative) Urine Urobilinogen (<2.0) mg/dL Ur Leukocyte Esterase (Negative) Urine RBC (0-5) /hpf Urine WBC (0-5) /hpf Ur Squamous Epith Cells (0-4) /hpf Urine Mucus (None) /hpf Urine Opiates Screen (NotDetected) Ur Oxycodone Screen (NotDetected) Urine Methadone Screen (NotDetected) Ur Propoxyphene Screen (NotDetected) Ur Barbiturates Screen (NotDetected) U Tricyclic Antidepress (NotDetected) Ur Phencyclidine Scrn (NotDetected) Ur Amphetamines Screen (NotDetected) U Methamphetamines Scrn (NotDetected) U Benzodiazepines Scrn (NotDetected) Urine Cocaine Screen (NotDetected) U Marijuana (THC) Screen (NotDetected) - Radiology Data Chest x-ray: No acute cardiopulmonary process. Noncontrast CT abdomen/pelvis: Correlate for urinary bladder cystitis. The examination is otherwise unremarkable. Disposition Clinical Impression: Chest pain, Palpitations, Pain in right lumbar region of back, Hypokalemia Disposition: HOME SELF-CARE Condition: Stable Instructions (If sedation given, give patient instructions): Chest Pain (ED), Back Pain (ED), Hypokalemia (ED), Heart Palpitations (ED) Additional Instructions: Return to the ER immediately should you develop new or worsening pain, increased shortness of breath, vomiting, feeling dizzy or faint, a fever, or new or worsening symptoms. Follow up closely with your primary care provider. Prescriptions: Potassium Chloride ER [K-Dur 20] 20 meq PO DAILY #7 tab Is patient prescribed a controlled substance at d/c from ED?: No Referrals: None,Stated [REFERRING] - 1-2 days Miguel Ángel Wolf MD [Primary Care Provider] - 1-2 days Time of Disposition: 16:53
[2023-05-03] MEDS ORDERED: SODIUM CHLORIDE 0.9% 1,000 ML IV STA (13:08)
[2023-05-03] MEDS ORDERED: HYDROmorphone 1 MG/ML 1 ML SYRINGE IVP STA (13:10)
[2023-05-03] MEDS ORDERED: LORazepam 2 MG/ML INJ IV STA (13:10)
[2023-05-03 13:32] LABS: Basophils # (A) 0.1 k/uL (0-0.2); Basophils % (A) 0 %; Eosinophils # (A) 0.4 k/uL (0-0.7); Eosinophils % (A) 3 %; HCT 38.8 % (34.0-46.0); Lymphocytes # (A) 1.9 k/uL (1.0-4.8); Lymphocytes % (A) 12 %; MCH 32.3 pg (25.0-35.0); MCHC 33.4 g/dL (31.0-37.0); MCV 96.6 fL (80.0-100.0); Mean Platelet Volume 7.7; Monocytes # (A) 0.8 k/uL (0-1.0); Monocytes % (A) 5 %; Neutrophils # (A) 12.7 k/uL (1.3-7.7); Neutrophils % (A) 80 %; Platelet Count 454 k/uL (150-450); RBC 4.02 m/uL (3.80-5.40); RDW 14.1 % (11.5-15.5); WBC 15.9 k/uL (3.8-10.6)
[2023-05-03] MEDS ORDERED: ONDANSETRON 4 MG/2 ML VIAL IVP STA (13:46)
[2023-05-03 13:47] LABS: ALT 13 U/L (4-34); AST 21 U/L (14-36); African American GFR (CKD) 64 (>60 ml/min/1.73 sqM); Albumin 4.5 g/dL (3.5-5.0); Alkaline Phosphatase 80 U/L (38-126); Anion Gap 12 mmol/L; Blood Urea Nitrogen 10 mg/dL (7-17); Calcium 9.1 mg/dL (8.4-10.2); Carbon Dioxide 28 mmol/L (22-30); Chloride 101 mmol/L (98-107); Glucose 146 mg/dL (74-99); Magnesium 1.6 mg/dL (1.6-2.3); Non-African American GFR(CKD) 56 (>60 ml/min/1.73 sqM); Potassium 2.8 mmol/L (3.5-5.1); Sodium 141 mmol/L (137-145); Total Bilirubin 0.6 mg/dL (0.2-1.3); Total Protein 8.1 g/dL (6.3-8.2)
[2023-05-03 13:56] LABS: INR 0.9 (<1.2); Partial Thromboplastin Time 27.8 sec (22.0-30.0)
[2023-05-03] MEDS ORDERED: POTASSIUM CHLORIDE ER 20 MEQ TAB.ER PO STA (13:58)
[2023-05-03 13:59] VITALS: RESP 18
--- NOTE | 2023-05-03 14:13 | XR ---
EXAMINATION TYPE: XR chest 2V DATE OF EXAM: 05/03/2023 COMPARISON: 09/02/2022 HISTORY: Chest pain TECHNIQUE: Frontal and lateral views of the chest are obtained. FINDINGS: There is no focal air space opacity. No evidence for pneumothorax. No pleural effusion. The cardiac silhouette size is mildly enlarged. The osseous structures are grossly intact. IMPRESSION: 1. No acute cardiopulmonary process.
--- NOTE | 2023-05-03 14:35 | CT ---
EXAMINATION TYPE: CT abdomen pelvis wo con DATE OF EXAM: 05/03/2023 COMPARISON: On HISTORY: Right side hip and flank pain. CT DLP: 484.5 mGycm Examination of the solid and hollow viscera is limited given the lack of contrast. FINDINGS: LUNG BASES: No evidence for nodule. No evidence for infiltrate. LIVER/GB: The gallbladder is unremarkable. No space-occupying hepatic lesion. PANCREAS: No pancreatic mass identified. No inflammatory process seen. SPLEEN: No evidence for splenomegaly. No intrasplenic lesions seen. ADRENALS: No adrenal nodules identified. No evidence for thickening. KIDNEYS: No evidence for renal mass. No nephrolithiasis. No hydronephrosis. Incomplete bladder disten tion however there may be mild wall thickening. Correlate for cystitis. BOWEL: Appendix has a normal appearance. No evidence of bowel obstruction. No inflammatory process. Lymph nodes: No evidence for adenopathy greater than 1 cm. Abdominal aorta: Atheromatous changes seen. No evidence for aneurysm. Genital organs: No significant abnormality. Other: No significant abnormality. Fat-containing umbilical hernia. Scoliotic curvature. IMPRESSION: 1. CORRELATE FOR URINARY BLADDER CYSTITIS. THE EXAMINATION IS OTHERWISE UNREMARKABLE.
[2023-05-03 14:45] LABS: Cocaine Screen,Urine Not Detected (NotDetected); Opiate Screen,Urine Detected (NotDetected); Phencyclidine Screen,Urine Not Detected (NotDetected); Urn Cannabinoid Scrn Detected (NotDetected)
[2023-05-03 14:46] LABS: Amphetamine Screen,Urine Not Detected (NotDetected); Barbiturate Screen,Urine Not Detected (NotDetected); Benzodiazepines Screen,Urine Not Detected (NotDetected); Methadone Screen, Urine Not Detected (NotDetected); Oxycodone Screen, Urine Not Detected (NotDetected); Tricyclic Antidepressant,Urine Not Detected (NotDetected)
[2023-05-03 14:58] LABS: Appearance,Urine Cloudy (Clear); Bilirubin,Urine Negative (Negative); Blood,Urine Negative (Negative); Color,Urine Yellow; Glucose,Urine (UA) Negative (Negative); Ketones,Urine Negative (Negative); Leukocyte Esterase,Urine Negative (Negative); Mucus,Urine Rare /hpf; Nitrite,Urine Negative (Negative); Protein,Urine 2+ (Negative); RBC,Urine <1 /hpf (0-5); Specific Gravity,Urine 1.017 (1.001-1.035); Squamous Epithelial Cell,Urine 6 /hpf (0-4); WBC,Urine 2 /hpf (0-5)
[2023-05-03 17:20] VITALS: BP 159/116; PULSE 87; TEMP 98.6
== END 2023-05-03 17:30 | disposition home or self-care (01) ==
LOC: EC 12:53
DX: R00.2 Palpitations (principal); R07.89 Other chest pain; E87.6 Hypokalemia; M46.96 Unspecified inflammatory spondylopathy, lumbar region; I10 Essential (primary) hypertension; I25.2 Old myocardial infarction; I48.91 Unspecified atrial fibrillation; F17.200 Nicotine dependence, unspecified, uncomplicated; F12.90 Cannabis use, unspecified, uncomplicated; Z79.82 Long term (current) use of aspirin
CPT/HCPCS: 36415; 93005; 85379; 83880; 80053; 83735; 84484; 85025; 85610; 85730; 81001; 80306; 87086; 71046; 74176; 99285; 96374; 96375 ×2; 96361; J2060; J2405; J1170